=== PATIENT | male | born 1940 | race Caucasian/White ===

== ENCOUNTER 2018-10-13 18:08 | Inpatient (IN) | payer MEDICARE, MEDICAID ==
[~2018-10-13] VITALS: Ht 170.2 cm; Wt 82.6 kg
[2018-10-13] VITALS (8 sets, daily range): BP systolic 128–147; BP diastolic 44–71
[~2018-10-13 18:08] MED LIST: AMIO200T4 PO; EZET10TA14 PO; FEBU40TA PO; FINA5TAB11 PO; FOLI0.8T23 PO; FOLI1TAB16 PO; FURO40TA5 PO; LEVO137T24 PO; MONT4GRA PO; NEBI5TAB8 PO; RIVA10TA PO; ROSU40TA PO; SERT100T PO; SILO8CAP2 PO; SPIR25TA6 PO; TIOT18CA3 IH
[2018-10-13] MEDS ORDERED: Magnesium 1GM/D5W 100ML PREMIX 200 ML IV ONE (18:20)
--- NOTE | 2018-10-13 18:20 | NUR ---
RT PT BROUGHT INTO ER BY PARAMEDICS, PT RECEIVED WITH LABORED BREATHING BUT STILL AWAKE AND ALERT. PT PLACED ON BIPAP PER DR. LOREDO ON NOTED SETTINGS. BIPAP ALARMS ARE SET AND AUDIBLE WITH BVM BY BEDSIDE. BIPAP PLUGGED INTO RED OUTLET. Addendum: 10/13/18 at 1846 by BRENDA STOLL RT Amended: Links added.
--- NOTE | 2018-10-13 18:20 | NUR ---
[id number] FROM HOME FOR COUGH AND CONGESTION, SOB SINCE YESTERDAY. PT ON BREATHING TREATMENT GUEST RELATIONS AGENT. AOX4, VSS, RESPIRATIONS EVEN AND LABORED. SKIN WARM, SLIGHTLY DIAPHORETIC, AND INTACT. DENIES DIZZINESS, WEAKNESS, N/V. AT BEDSIDE. READY FOR EVAL.
--- NOTE | 2018-10-13 18:20 | NUR ---
Note undone in EDM - 10/13/18 at 2101 by GZAKARYAN BIBRA99 FROM HOME FOR COUGH AND CONGESTION, SOB SINCE YESTERDAY. PT ON BREATHING TREATMENT DIRECTOR BIOLOGICS. AOX4, VSS, RESPIRATIONS EVEN AND LABORED. SKIN WARM, SLIGHTLY DIAPHORETIC, AND INTACT. DENIES DIZZINESS, WEAKNESS, N/V. AT BEDSIDE. READY FOR EVAL.
[2018-10-13] MEDS ORDERED: methylPREDNISolone SOD SUCC 125 MG/2ML VIAL ONE (18:27)
[2018-10-13] MEDS ORDERED: Magnesium 1GM/D5W 100ML PREMIX 100 ML IV ONE (18:27)
[2018-10-13] MEDS ORDERED: methylPREDNISolone SOD SUCC 125 MG/2ML VIAL IV ONE (18:30)
[2018-10-13] MEDS ORDERED: IV NS 0.9% 500 ML IV ONE (18:30)
[2018-10-13 18:46] LABS: BASOPHILS % (AUTO) 0.2 % (0.0-2.0); HEMATOCRIT 40 % (39-51); HEMOGLOBIN 12.6 g/dL (13.5-17.5); LYMPHOCYTES # (AUTO) 1.2 /CMM (0.8-4.8); LYMPHOCYTES % (AUTO) 6.3 % (20.0-44.0); MEAN CORPUSCULAR HGB CONC 31 g/dl (31.0-36.0); MEAN CORPUSCULAR VOLUME 87 fL (80-96); MONOCYTES # (AUTO) 0.6 /CMM (0.1-1.30); MONOCYTES % (AUTO) 2.9 % (2.0-12.0); NEUTROPHILS # (AUTO) 17.6 /CMM (1.8-8.9); NEUTROPHILS % (AUTO) 90.6 % (43.0-81.0); PLATELET COUNT (AUTO) 236 /CMM (150-450); RED BLOOD CELL COUNT(AUTO) 4.59 MIL/uL (4.5-6.0); WHITE BLOOD COUNT (AUTO) 19.5 K/uL (4.3-11.0)
[2018-10-13] MEDS ORDERED: IPRA4AER IH (18:54)
[2018-10-13] MEDS ORDERED: DOCU100C36 PO (18:54)
[2018-10-13] MEDS ORDERED: AZITHROMYCIN 500 MG in IV D5W 250 ML IV ONE (19:30)
[2018-10-13] MEDS ORDERED: AZITHROMYCIN 500 MG VIAL ONE (19:30)
[2018-10-13] MEDS ORDERED: CEFTRIAXONE 1GM BAG (ER ONLY) 50 ML IV ONE (19:30)
[2018-10-13] MEDS ORDERED: CEFTRIAXONE 1 G in IV D5W 50 ML IV ONE (19:30)
[2018-10-13 19:40] LABS: CALCIUM, SERUM 9.2 mg/dL (8.5-10.1); CARBON DIOXIDE 28 mmol/L (21-32); CHLORIDE 104 mmol/L (98-107); CREATININE 1.5 mg/dL (0.6-1.3); GLUCOSE 121 mg/dL (74-106); POTASSIUM 4.2 mmol/L (3.5-5.1); SODIUM SERUM 141 mmol/L (136-145); UREA NITROGEN, BLOOD 41 mg/dL (7-18)
[2018-10-13 19:40] LABS: ABG BASE EXCESS 2.6 mmol/L; ABG OXYGEN SATURATION 93.8 % (92.0-98.5); ABG PCO2 36.1 mmHg (35.0-45.0); ABG PH 7.475 (7.350-7.450); ABG PO2 68.9 mmHg (75.0-100.0); AaDO2 102.6 mmHg; COHb 1.1 % (0.5-1.5); MetHb 0.4 % (0.0-1.5); O2Hb 92.4 % (94.0-97.0); SITE, ABG Right Radial; VENT MODE, BG BIPAP15/5 30% RR12
[2018-10-13] MEDS ORDERED: ALBUTEROL FS 2.5 MG/3 ML VIAL.NEB ONE (19:43)
[2018-10-13] MEDS ORDERED: IPRATROPIUM NEB FS 0.5 MG/2.5 ML AMPUL.NEB ONE (19:43)
[2018-10-13 19:53] LABS: ALANINE AMINOTRANSFERASE 26 U/L (12-78); ALKALINE PHOSPHATASE 115 U/L (46-116); ASPARTATE AMINOTRANSFERASE 18 U/L (15-37); B-TYPE NATRIURETIC PEPTIDE 6680 PG/ML (0-125); BILIRUBIN,DIRECT 0.2 mg/dL (0.0-0.2); BILIRUBIN,TOTAL 0.7 mg/dL (0.2-1.0); TOTAL PROTEIN, SERUM 6.9 g/dL (6.4-8.2)
--- NOTE | 2018-10-13 19:57 | NUR ---
RT NOTE PT RECEIVED ON BIPAP SETTINGS OF 15/5 30% RR 12. ABG RESULTS READ BY . MD WANTS TO KEEP BIPAP ON, BREATHING TX WAS ORDERED. WILL CONT TO MONITOR PT. Addendum: 10/13/18 at 1958 by BENITA HERNANDEZ RT Amended: Links added.
[2018-10-13] MEDS ORDERED: ALBUTEROL FS 2.5 MG/3 ML VIAL.NEB NEB ONE (20:00)
[2018-10-13] MEDS ORDERED: IPRATROPIUM NEB FS 0.5 MG/2.5 ML AMPUL.NEB NEB ONE (20:00)
--- NOTE | 2018-10-13 20:27 | NUR ---
ICU 254
[2018-10-13] MEDS ORDERED: AZITHROMYCIN 250 MG TABLET PO SCH (21:00)
[2018-10-13] MEDS ORDERED: ONDANSETRON HCL/PF 4 MG/2 ML VIAL IVP PRN (21:00)
[2018-10-13] MEDS ORDERED: ZOLPIDEM TARTRATE 5 MG TABLET PO PRN (21:00)
[2018-10-13] MEDS ORDERED: ACETAMINOPHEN 325 MG TABLET PO PRN (21:00)
[2018-10-13] MEDS ORDERED: MAG HYDROX/AL HYDROX/SIMETH 30 ML UDC PO PRN (21:00)
[2018-10-13] MEDS: CEFTRIAXONE 1 G in IV D5W 50 ML IV SCH (21:00)
[2018-10-13] MEDS ORDERED: MAGNESIUM HYDROXIDE 30 ML UDC PO PRN (21:00)
[2018-10-13] MEDS ORDERED: HYDROCODONE/APAP 5/325MG 1 EACH TABLET PO PRN (21:00)
[2018-10-13] MEDS ORDERED: Z GUARD REMEDY 2 OZ OINT TP PRN (21:00)
--- NOTE | 2018-10-13 21:13 | NUR ---
REPORT GIVEN TO MARY HUANG FOR 254
--- NOTE | 2018-10-13 21:20 | NUR ---
PT TRANSFERRED TO ICU VIA [facility] BY BRIAN LANIER AND KONRAD RN
[2018-10-13] MEDS ORDERED: IV NS 0.9% 250 ML IV PRN (21:30)
[2018-10-13] MEDS: ALBUTEROL FS 2.5 MG/3 ML VIAL.NEB NEB SCH (21:38)
--- NOTE | 2018-10-13 21:50 | NUR ---
CHEMICAL RESEARCH WORKER RCD PT FROM ER W/DX ACUTE RESP FAIL HYPOXIA; PT PLACED ON BIPAP BY RT RR12 15/5 PS 10. AT BEDSIDE UPDATED WITH PLAN OF CARE. AV PACING ON MONITOR.
[2018-10-13] MEDS ORDERED: FUROSEMIDE 20 MG/2 ML VIAL IV ONE (22:00)
--- NOTE | 2018-10-13 22:00 | NUR ---
FILM AND VIDEO GRAPHICS DESIGNER PER PT ALL HOME MEDS WERE TAKEN PRIOR TO ARRIVING AT HOSPITAL HOWEVER PT IS REQUESTING SEROQUEL HE TAKES IT EVERY NIGHT FOR SLEEP.
[2018-10-13] MEDS: QUETIAPINE FUMARATE 25 MG TABLET PO SCH (23:03)
[2018-10-14] VITALS (29 sets, daily range): BP systolic 126–169; BP diastolic 19–79
[2018-10-14 05:00] LABS: BASOPHILS % (AUTO) 0.1 % (0.0-2.0); HEMATOCRIT 38 % (39-51); HEMOGLOBIN 12.1 g/dL (13.5-17.5); LYMPHOCYTES # (AUTO) 0.5 /CMM (0.8-4.8); MEAN CORPUSCULAR HGB CONC 32 g/dl (31.0-36.0); MEAN CORPUSCULAR VOLUME 88 fL (80-96); MONOCYTES # (AUTO) 0.2 /CMM (0.1-1.30); MONOCYTES % (AUTO) 1.1 % (2.0-12.0); NEUTROPHILS % (AUTO) 95.8 % (43.0-81.0); PLATELET COUNT (AUTO) 220 /CMM (150-450); RED BLOOD CELL COUNT(AUTO) 4.36 MIL/uL (4.5-6.0); WHITE BLOOD COUNT (AUTO) 16.7 K/uL (4.3-11.0)
[2018-10-14 05:10] LABS: CHOLESTEROL 114 mg/dL (<200); HDL CHOLESTEROL 54 mg/dL (40-60); LDL 43 mg/dL (0-99); TRIGLYCERIDES 109 mg/dL (30-150)
[2018-10-14 05:27] LABS: CALCIUM, SERUM 8.9 mg/dL (8.5-10.1); CARBON DIOXIDE 26 mmol/L (21-32); CHLORIDE 103 mmol/L (98-107); CREATININE 1.6 mg/dL (0.6-1.3); MAGNESIUM 2.4 mg/dL (1.8-2.4); POTASSIUM 4.5 mmol/L (3.5-5.1); SODIUM SERUM 140 mmol/L (136-145); UREA NITROGEN, BLOOD 38 mg/dL (7-18)
[2018-10-14 06:01] LABS: GLUCOSE 389 mg/dL (74-106)
--- NOTE | 2018-10-14 07:05 | NUR ---
RN NOTES RECEIVED PT SITING ON BSC , A/OX4, ON BIPAP , TOLERATING CURRENT BIPAP SETTING WELL. O2 SAT 98%, ON TELE AV PACING HR IN 60'S , L HAND IV SITE G 20 CLEAN, DRY AND INTACT, CALL LIGHT WITHIN EASY REACH, CONTINUE TO MONITOR.
[2018-10-14] MEDS: FOLIC ACID 1 MG TABLET PO SCH (08:22)
[2018-10-14] MEDS: SPIRONOLACTONE 25 MG TABLET PO SCH ×2 (08:22→16:12)
[2018-10-14] MEDS: AMIODARONE HCL 200 MG TABLET PO SCH (08:23)
[2018-10-14] MEDS: FINASTERIDE (5 MG) 5 MG TABLET PO SCH (08:23)
[2018-10-14] MEDS: methylPREDNISolone SOD SUCC 125 MG/2ML VIAL IV SCH ×3 (08:23→16:12)
[2018-10-14] MEDS: SERTRALINE HCL 50 MG TABLET PO SCH (08:27)
[2018-10-14] MEDS: IPRATROPIUM NEB FS 0.5 MG/2.5 ML AMPUL.NEB HHN SCH ×5 (08:35→21:50)
[2018-10-14] MEDS: ALBUTEROL FS 2.5 MG/3 ML VIAL.NEB NEB SCH ×4 (08:36→19:49)
[2018-10-14] MEDS: LEVOTHYROXINE SODIUM 137 MCG TABLET PO SCH (08:43)
[2018-10-14] MEDS: INSULIN ASPART/LISPRO 100 UNIT/ML CARTRIDGE SQ SCH ×3 (08:53→17:04)
[2018-10-14] MEDS ORDERED: Medication Not On Formulary EA (Sertraline Hcl (Zoloft) 1 TAB) PO SCH (09:00)
[2018-10-14] MEDS ORDERED: INSULIN ASPART/LISPRO 100 UNIT/ML CARTRIDGE SQ PRN (09:00)
[2018-10-14] MEDS ORDERED: DEXTROSE 50%-WATER 50 ML DISP.SYRIN IV PRN ×3 (09:00→12:00)
[2018-10-14] MEDS ORDERED: TIOTROPIUM BROMIDE 6 CAP/BOX CAP.W.DEV IH SCH (09:00)
--- NOTE | 2018-10-14 10:00 | NUR ---
RN NOTES PT OOB TO BSC, TOLERATING WELL, SUPPORTIVE AT THE BEDSIDE, CONTINUE TO MONITOR. OFF BIPAP, [place] O2 N/C AT 4 L WELL , CONTINUE TO MONITOR .
[2018-10-14] MEDS: GUAIFENESIN LA 600 MG TABLET.SA PO SCH ×2 (10:55→20:49)
[2018-10-14] MEDS ORDERED: INSULIN REGULAR, HUMAN 100 UNIT/ML 3 ML VIAL SQ PRN (12:00)
[2018-10-14] MEDS ORDERED: BLOOD SUGAR DIAGNOSTIC 1 EACH STRIP IN SCH ×3 (12:00)
[2018-10-14] MEDS: FUROSEMIDE 100 MG/10 ML VIAL IV SCH ×3 (12:05→20:49)
[2018-10-14 12:09] LABS: THYROID STIMULATING HORMONE 0.824 uIU/mL (0.358-3.74)
[2018-10-14] MEDS: BLOOD SUGAR DIAGNOSTIC 1 EACH STRIP IN SCH ×3 (13:14→21:34)
[2018-10-14] MEDS: INSULIN ASPART/LISPRO 100 UNIT/ML CARTRIDGE SQ PRN ×3 (14:01→21:32)
--- NOTE | 2018-10-14 15:00 | NUR ---
RN NOTES PT OUT OF BED TO CHAIR, TOLERATING WELL , CONTINUE TO MONITOR .
[2018-10-14] MEDS: DOCUSATE SODIUM 100 MG CAPSULE PO SCH (17:05)
[2018-10-14] MEDS: EZETIMIBE 10 MG TABLET PO SCH (17:06)
--- NOTE | 2018-10-14 18:00 | NUR ---
RT NOTE: RT CALLED A THIS TIME FOR RESPIRATORY TREATMENT. PATIENT'S REQUESTED ME TO WAIT TO ADMINISTER AFTER PATIENT FINISHED EATING. TREATMENT DONE WITH NO ADVERSE REACTION. RESPIRATIONS ARE EVEN AND UNLABORED. WILL INDORSE TO INCOMING SHIFT.
--- NOTE | 2018-10-14 18:21 | NUR ---
RN NOTES NO SOB NOTED, UNABLE TO OBTAIN SEPTUM SAMPLE YET, PT RECEIVING BREATHING TREATMENT AT THIS TIME, SR UP x3, BED LOCKED AND IN LOWEST POSITION , WILL ENDORSE TO PHOTOGRAPHIC DEVELOPER AND PRINTER NURSE FOR CONTINUITY OF CARE .
--- NOTE | 2018-10-14 19:30 | NUR ---
rn notes patient is alert and oriented x 4. able to converse in yi. connected to monitor. safety measures provided.
[2018-10-14] MEDS: CEFTRIAXONE 1 G in IV D5W 50 ML IV SCH (20:56)
[2018-10-14] MEDS ORDERED: AZITHROMYCIN 250 MG TABLET PO SCH (21:00)
[2018-10-14] MEDS: QUETIAPINE FUMARATE 25 MG TABLET PO SCH (21:10)
[2018-10-14] MEDS: RIVAROXABAN 10 MG TABLET PO SCH (21:10)
[2018-10-14] MEDS: INSULIN GLARGINE, 100 UNIT/ML CARTRIDGE SQ SCH (21:31)
[2018-10-14] MEDS ORDERED: INSULIN GLARGINE, 100 UNIT/ML CARTRIDGE SQ SCH (22:00)
[2018-10-14] MEDS ORDERED: QUETIAPINE FUMARATE 25 MG TABLET PO SCH (22:00)
[2018-10-15] VITALS (16 sets, daily range): BP systolic 126–162; BP diastolic 47–116
[2018-10-15 04:52] LABS: BASOPHILS % (AUTO) 0.1 % (0.0-2.0); HEMATOCRIT 38 % (39-51); HEMOGLOBIN 12.2 g/dL (13.5-17.5); LYMPHOCYTES # (AUTO) 0.6 /CMM (0.8-4.8); LYMPHOCYTES % (AUTO) 5.4 % (20.0-44.0); MEAN CORPUSCULAR HGB CONC 32 g/dl (31.0-36.0); MEAN CORPUSCULAR VOLUME 87 fL (80-96); MONOCYTES # (AUTO) 0.4 /CMM (0.1-1.30); NEUTROPHILS # (AUTO) 9.3 /CMM (1.8-8.9); NEUTROPHILS % (AUTO) 90.5 % (43.0-81.0); PLATELET COUNT (AUTO) 204 /CMM (150-450); RED BLOOD CELL COUNT(AUTO) 4.36 MIL/uL (4.5-6.0); WHITE BLOOD COUNT (AUTO) 10.2 K/uL (4.3-11.0)
[2018-10-15 05:03] LABS: ALANINE AMINOTRANSFERASE 24 U/L (12-78); ALBUMIN 2.6 g/dL (3.4-5.0); ALKALINE PHOSPHATASE 95 U/L (46-116); ASPARTATE AMINOTRANSFERASE 16 U/L (15-37); BILIRUBIN,TOTAL 0.8 mg/dL (0.2-1.0); CALCIUM, SERUM 8.8 mg/dL (8.5-10.1); CARBON DIOXIDE 31 mmol/L (21-32); CHLORIDE 103 mmol/L (98-107); CREATININE 1.3 mg/dL (0.6-1.3); GLUCOSE 326 mg/dL (74-106); MAGNESIUM 2.2 mg/dL (1.8-2.4); PHOSPHORUS 3.6 mg/dL (2.5-4.9); POTASSIUM 3.5 mmol/L (3.5-5.1); SODIUM SERUM 142 mmol/L (136-145); TOTAL PROTEIN, SERUM 6.4 g/dL (6.4-8.2); UREA NITROGEN, BLOOD 45 mg/dL (7-18)
[2018-10-15] MEDS: POTASSIUM CHLORIDE 20 MEQ TAB.PRT.SR PO SCH ×2 (06:39→08:35)
--- NOTE | 2018-10-15 07:00 | NUR ---
RN NOTES RECEIVED PT ON BED, A/OX4, ON 2L O2 N/C , NO DISTRESS NOTED, O2 SAT 98%, ON TELE AV PACING HR IN 60'S , L HAND IV SITE G 20 CLEAN, DRY AND INTACT, CALL LIGHT WITHIN EASY REACH, BED LOCKED AND IN LOWEST POSITION, CONTINUE TO MONITOR.
[2018-10-15] MEDS: LEVOTHYROXINE SODIUM 137 MCG TABLET PO SCH (07:23)
[2018-10-15] MEDS: INSULIN ASPART/LISPRO 100 UNIT/ML CARTRIDGE SQ PRN ×2 (07:24→12:28)
[2018-10-15] MEDS: INSULIN ASPART/LISPRO 100 UNIT/ML CARTRIDGE SQ SCH ×3 (07:24→17:38)
[2018-10-15] MEDS: BLOOD SUGAR DIAGNOSTIC 1 EACH STRIP IN SCH ×4 (07:25→21:23)
[2018-10-15] MEDS: ALBUTEROL FS 2.5 MG/3 ML VIAL.NEB NEB SCH ×4 (07:52→19:50)
--- NOTE | 2018-10-15 07:55 | NUR ---
RN NOTES REPORT GIVEN TO ANN MARIE HERNANDEZ FOR CONTINUITY OF CARE .
[2018-10-15] MEDS ORDERED: BUMETANIDE INJ 16 MG in IV NS 0.9% 16 ML IV ONE (08:00)
[2018-10-15] MEDS: GUAIFENESIN LA 600 MG TABLET.SA PO SCH ×2 (08:36→21:28)
[2018-10-15] MEDS: methylPREDNISolone SOD SUCC 125 MG/2ML VIAL IV SCH ×2 (08:36→13:04)
[2018-10-15] MEDS: SPIRONOLACTONE 25 MG TABLET PO SCH ×2 (08:36→17:35)
[2018-10-15] MEDS: FOLIC ACID 1 MG TABLET PO SCH (08:37)
[2018-10-15] MEDS: MONTELUKAST SODIUM (10MG) 10 MG TABLET PO SCH (08:37)
[2018-10-15] MEDS: AMIODARONE HCL 200 MG TABLET PO SCH (08:37)
[2018-10-15] MEDS: SERTRALINE HCL 50 MG TABLET PO SCH (08:37)
[2018-10-15] MEDS: FINASTERIDE (5 MG) 5 MG TABLET PO SCH (08:37)
[2018-10-15] MEDS: DAKINS QUARTER STRENGTH (0.125%) 480 ML BOTTLE TOP SCH (09:00)
[2018-10-15] MEDS: IPRATROPIUM NEB FS 0.5 MG/2.5 ML AMPUL.NEB HHN SCH ×4 (09:46→19:51)
--- NOTE | 2018-10-15 11:00 | NUR ---
LUDLOW MACHINE OPERATOR TO TELE PATIENT DOWNGRADED TO ANGEL/TELE WILL PRISCILLA IN ANGEL 1ST FLOOR
[2018-10-15] MEDS: THERAHONEY GEL 1.5 OZ TUBE TP SCH (13:05)
[2018-10-15] MEDS ORDERED: DEXTROSE 50%-WATER 50 ML DISP.SYRIN IV PRN (14:30)
[2018-10-15] MEDS: methylPREDNISolone SOD SUCC 40 MG/ML VIAL IV SCH (17:34)
[2018-10-15] MEDS: *INSULIN REGULAR(HUMULIN R)HUM 100 UNIT/ML VIAL SQ PRN ×2 (17:41→21:19)
[2018-10-15] MEDS: BLOOD SUGAR DIAGNOSTIC 1 EACH STRIP VI SCH ×2 (17:48→22:00)
[2018-10-15] MEDS: EZETIMIBE 10 MG TABLET PO SCH (18:02)
[2018-10-15] MEDS: DOCUSATE SODIUM 100 MG CAPSULE PO SCH (18:02)
[2018-10-15] MEDS: ATORVASTATIN 40 MG TABLET PO SCH (18:02)
--- NOTE | 2018-10-15 18:52 | NUR ---
FORENSIC BALLISTICS EXPERT CLOSING NOTES PATIENT ASLEEP IN BED. ABLE TO AROUSE WITH NAME AND SOFT TOUCH. ON 2 LTRS VIA NASAL CANNULA NO SIGNS OR SYMPTOMS OF RESPIRATORY DISTRESS OR ACUTE PAIN. WOUND DRESSING TO LLE DONE WITH NO COMPLICATIONS. APPETITE GOOD. BS RANGE 284-339 WITH MOD SLIDING SCALE. AMBULATES TO CHAIR WITH MAX ASSIST. USING URINAL CLEAR YELLOW ABLE TO MAKE NEEDS KNOWN AND ALL MET. SAFETY PRECAUTIONS IN PLACE CALL LIGHT WITHIN REACH. PRISCILLA
--- NOTE | 2018-10-15 19:30 | NUR ---
TELE/RN RECEIVE PATIENT AWAKE, ALERT, ORIENTED, COMFORTABLE, NO C/O PAIN, NO DISTRESS NOTED, CALL LIGHT IN REACH. FALL PRECAUTION, WILL MONITOR.
[2018-10-15] MEDS ORDERED: VANCOMYCIN 1.5 GM in IV D5W 500 ML IV ONE (20:00)
[2018-10-15] MEDS: RIVAROXABAN 10 MG TABLET PO SCH (21:18)
[2018-10-15] MEDS: INSULIN GLARGINE, 100 UNIT/ML CARTRIDGE SQ SCH (21:20)
[2018-10-15] MEDS: QUETIAPINE FUMARATE 25 MG TABLET PO SCH (21:29)
--- NOTE | 2018-10-15 22:04 | NUR ---
TELE/RN ACCU CHECK NOT DONE, DUPLICATE ORDER.
--- NOTE | 2018-10-15 23:57 | NUR ---
ANGEL/RN PATIENT AWAKE, NO CHANGE IN CONDITION. ENDORSE TO NEXT RN FOR CONTINUITY OF CARE.
[2018-10-16] VITALS: BP 110/53
--- NOTE | 2018-10-16 | NUR ---
ANGEL RN NOTES RECEIVED PTS AND REPORT FROM WOJCIECH , CONTINUE CARE, V/S STABLE AFEBRILE ALL NEEDS ATTENDED TOO CALL LIGHT WITHIN REACH KEPT PTS CLEAN DRY AND COMFORTABLE, NO SOB NO DISTRESS NOTED.
[2018-10-16 04:00] VITALS: BP 162/68
--- NOTE | 2018-10-16 06:00 | NUR ---
ANGEL RN NOTES
--- NOTE | 2018-10-16 06:36 | NUR ---
ANGEL RN NOTES PTS IN BED AWAKE , V/S STABLE AFEBRILE NO SOB NO DISTRESS NOTED , WILL ENDORSE TO RN DAY SHIFT FOR CONTINUITY OF CARE.
[2018-10-16 06:41] LABS: BASOPHILS % (AUTO) 0.1 % (0.0-2.0); HEMATOCRIT 39 % (39-51); HEMOGLOBIN 12.4 g/dL (13.5-17.5); LYMPHOCYTES # (AUTO) 0.5 /CMM (0.8-4.8); LYMPHOCYTES % (AUTO) 4.9 % (20.0-44.0); MEAN CORPUSCULAR HGB CONC 32 g/dl (31.0-36.0); MEAN CORPUSCULAR VOLUME 87 fL (80-96); MONOCYTES # (AUTO) 0.7 /CMM (0.1-1.30); MONOCYTES % (AUTO) 6.2 % (2.0-12.0); NEUTROPHILS # (AUTO) 9.9 /CMM (1.8-8.9); NEUTROPHILS % (AUTO) 88.8 % (43.0-81.0); PLATELET COUNT (AUTO) 210 /CMM (150-450); RED BLOOD CELL COUNT(AUTO) 4.45 MIL/uL (4.5-6.0); WHITE BLOOD COUNT (AUTO) 11.2 K/uL (4.3-11.0)
[2018-10-16 07:11] LABS: ALANINE AMINOTRANSFERASE 38 U/L (12-78); ALBUMIN 2.7 g/dL (3.4-5.0); ALKALINE PHOSPHATASE 93 U/L (46-116); ASPARTATE AMINOTRANSFERASE 23 U/L (15-37); BILIRUBIN,TOTAL 1.1 mg/dL (0.2-1.0); CALCIUM, SERUM 8.9 mg/dL (8.5-10.1); CARBON DIOXIDE 36 mmol/L (21-32); CHLORIDE 98 mmol/L (98-107); CREATININE 1.4 mg/dL (0.6-1.3); PHOSPHORUS 3.3 mg/dL (2.5-4.9); POTASSIUM 3.4 mmol/L (3.5-5.1); SODIUM SERUM 140 mmol/L (136-145); TOTAL PROTEIN, SERUM 6.5 g/dL (6.4-8.2); UREA NITROGEN, BLOOD 43 mg/dL (7-18)
[2018-10-16] MEDS: ALBUTEROL FS 2.5 MG/3 ML VIAL.NEB NEB SCH ×4 (07:16→19:12)
[2018-10-16] MEDS: IPRATROPIUM NEB FS 0.5 MG/2.5 ML AMPUL.NEB HHN SCH ×3 (07:17→19:12)
[2018-10-16 07:18] LABS: GLUCOSE 376 mg/dL (74-106)
[2018-10-16] MEDS ORDERED: FEE PK DOSING 1 MIN EA MC ONE (07:30)
--- NOTE | 2018-10-16 07:30 | NUR ---
ANGEL RN AM NOTES RECEIVED PT IN BED, A/OX4, ON 1L O2 N/C , NO DISTRESS NOTED, ON TELE AV PACING HR IN 58, DENIES PAIN, L HAND IV SITE G 20 CLEAN, DRY AND INTACT, CALL LIGHT WITHIN EASY REACH, BED LOCKED AND IN LOWEST POSITION, WILL CONTINUE TO MONITOR.
[2018-10-16] MEDS: BLOOD SUGAR DIAGNOSTIC 1 EACH STRIP IN SCH (07:51)
[2018-10-16] MEDS: BLOOD SUGAR DIAGNOSTIC 1 EACH STRIP VI SCH ×4 (07:51→20:59)
--- NOTE | 2018-10-16 07:54 | NUR ---
ANGEL RN NOTES ACCUCHECK DONE. BS 316 MG/DL, 12 U HUM R GIVEN PER SS.
[2018-10-16 08:00] VITALS: BP 169/67
[2018-10-16] MEDS: LEVOTHYROXINE SODIUM 137 MCG TABLET PO SCH (08:23)
[2018-10-16] MEDS: INSULIN ASPART/LISPRO 100 UNIT/ML CARTRIDGE SQ SCH ×3 (08:25→17:10)
[2018-10-16] MEDS: INSULIN REGULAR, HUMAN 100 UNIT/ML 3 ML VIAL SQ PRN ×3 (08:26→17:22)
--- NOTE | 2018-10-16 09:30 | NUR ---
MS RN NOTES DUE MEDS GIVEN
[2018-10-16] MEDS: MONTELUKAST SODIUM (10MG) 10 MG TABLET PO SCH (09:32)
[2018-10-16] MEDS: methylPREDNISolone SOD SUCC 40 MG/ML VIAL IV SCH ×3 (09:32→17:08)
[2018-10-16] MEDS: GUAIFENESIN LA 600 MG TABLET.SA PO SCH ×2 (09:32→20:59)
[2018-10-16] MEDS: FOLIC ACID 1 MG TABLET PO SCH (09:33)
[2018-10-16] MEDS: SPIRONOLACTONE 25 MG TABLET PO SCH ×2 (09:33→17:08)
[2018-10-16] MEDS: AMIODARONE HCL 200 MG TABLET PO SCH (09:33)
[2018-10-16] MEDS: SERTRALINE HCL 50 MG TABLET PO SCH (09:33)
[2018-10-16] MEDS: FINASTERIDE (5 MG) 5 MG TABLET PO SCH (09:34)
[2018-10-16] MEDS: DAKINS QUARTER STRENGTH (0.125%) 480 ML BOTTLE TOP SCH (09:41)
[2018-10-16] MEDS: THERAHONEY GEL 1.5 OZ TUBE TP SCH (09:41)
--- NOTE | 2018-10-16 09:44 | NUR ---
RN NOTES TRANSFER TO MED SURG. DC ANGEL PER DR. SMITH
[2018-10-16] MEDS ORDERED: POTASSIUM CHLORIDE 20 MEQ TAB.PRT.SR PO SCH (10:00)
[2018-10-16] MEDS: FUROSEMIDE 40 MG TABLET PO SCH (10:05)
[2018-10-16] MEDS ORDERED: RXVAN XX (10:45)
[2018-10-16] MEDS ORDERED: PRED50TA PO (10:45)
--- NOTE | 2018-10-16 11:15 | NUR ---
MS RN NOTES DR. MULLIGAN SPOKE WITH PT'S , PT MAY STAY FOR 2 DAYS MORE. WILL CONTINUE IV ATB AT HOME, VANCO IV WITH [facility]. CASE MANAGEMENT AWARE.
[2018-10-16 12:00] VITALS: BP 141/63
--- NOTE | 2018-10-16 12:32 | NUR ---
MS RN NOTES ACCUCHECK DONE. BS 289 MG/DL, 9 U HUM R GIVEN PER SS.
--- NOTE | 2018-10-16 14:00 | NUR ---
MS RN NOTES PICC LINE IN PLACE TO RIGHT UPPER ARM.
[2018-10-16] MEDS: VANCOMYCIN 1.25 GM in IV D5W 500 ML IV SCH (15:20)
[2018-10-16 16:00] VITALS: BP 121/61
[2018-10-16] MEDS: DOCUSATE SODIUM 100 MG CAPSULE PO SCH (17:07)
[2018-10-16] MEDS: ATORVASTATIN 40 MG TABLET PO SCH (17:08)
[2018-10-16] MEDS: EZETIMIBE 10 MG TABLET PO SCH (17:08)
--- NOTE | 2018-10-16 17:34 | NUR ---
MS RN NOTES ACCUCHECK DONE. BS 210 MG/DL. 6 UNITS HUM R GIVEN PER SS.
--- NOTE | 2018-10-16 18:41 | NUR ---
RN NOTES PT RESTING IN BED. NOT IN ANY DISTRESS, ON ROOM AIR. DENIES PAIN. PRESCRIBED WOUND TREATMENT AND PM CARE DONE EARLIER. KIRSTIE PICC LINE AND LEFT HAND IV ACCESS IN SITU. BOTH SITE CLEAR. ALL NEEDS MET AT THIS TIME. NO OTHER SIGNIFICANT CHANGE IN CONDITION. SAFETY MEASURES IN PLACE. CALL LIGHT WITHIN REACH. WILL ENDORSE TO NEXT SHIFT FOR PRISCILLA
[2018-10-16 20:00] VITALS: BP 115/41
--- NOTE | 2018-10-16 20:00 | NUR ---
MS/NOTES: RECEIVED PT. SITTING IN BED W/ NO S/S OF RESPIRATORY DISTRESS. DENIES ANY C/O PAIN OR SOB AT PRESENT. W/ KIRSTIE PICC LINE W/ DRESSING CLEAN AND DRY. CONTINENT OF B/B. GOES TO BATHROOM. LH G 20 PATENT AND INTACT W/ NO S/S OF INFECTION/INFILTRATION NOTED. WILL CONTINUE TO MONITOR. CALL LIGHT W/REACH.
[2018-10-16] MEDS: MUPIROCIN OINT 2% 22 GM TUBE SCH (20:59)
[2018-10-16] MEDS: RIVAROXABAN 10 MG TABLET PO SCH (21:00)
[2018-10-16] MEDS: INSULIN GLARGINE, 100 UNIT/ML CARTRIDGE SQ SCH (21:01)
[2018-10-16] MEDS: QUETIAPINE FUMARATE 25 MG TABLET PO SCH (21:12)
[2018-10-17] VITALS: BP 115/41
[2018-10-17] MEDS: IPRATROPIUM NEB FS 0.5 MG/2.5 ML AMPUL.NEB HHN SCH ×3 (01:30→11:42)
[2018-10-17 04:00] VITALS: BP 145/61
--- NOTE | 2018-10-17 07:23 | NUR ---
TELE/RN OPENING NOTES: PATIENT RECEIVED IN BED AWAKE IN NO ACUTE SIGNS OF DISTRESS. HOB ELEVATED. A/O X1-2. SPEAKS [place] ONLY, NO C/O PAIN OR DISCOMFORTS VOICED AT THIS TIME. ON TELE-MONITORING WITH V PACING AND HR ON THE 60'S. HL ON RIGHT AC G #20 PATENT AND INTACT, NO S/S OF PHLEBITIS OR INFILTRATION NOTED @ SITE. SAFETY ,MEASURES IN PLACE. BED IN LOW/LOCKED POSITION WITH SIDERAILS UP X2. CALL LIGHT WITHIN REACH. WILL CONTINUE TO MONITOR. Addendum: 10/17/18 at 0725 by JOSE LUIS SWANN RN CORRECTION: WRONG PROGRESS NOTES. IT'S FOR ANOTHER PATIENT.
--- NOTE | 2018-10-17 07:25 | NUR ---
RN OPENING NOTES: PATIENT RECEIVED IN BED AWAKE IN NO ACUTE SIGNS OF DISTRESS. HOB ELEVATED. A/O X4. ABLE TO VERBALIZED NEEDS WITH NO C/O PAIN OR DISCOMFORTS VOICED AT THIS TIME. ON 02 VIA N/C @ 1LPM, TOLERATING WELL WITH NO SOB NOTED. HL ON LEFT HAND G #20 PATENT AND INTACT, NO S/S OF PHLEBITIS OR INFILTRATIONS NOTED @ SITE. PT ALSO WITH KIRSTIE PICC LINE IN PLACE AND PATENT. SAFETY ,MEASURES IN PLACE. BED IN LOW/LOCKED POSITION WITH SIDE-RAILS UP X2. CALL LIGHT WITHIN REACH. WILL CONTINUE TO MONITOR.
--- NOTE | 2018-10-17 07:27 | NUR ---
MS/NOTES: REPORT GIVEN TO NEXT SHIFT NURSE FOR PRISCILLA.
[2018-10-17 07:28] LABS: CALCIUM, SERUM 8.6 mg/dL (8.5-10.1); CARBON DIOXIDE 34 mmol/L (21-32); CHLORIDE 101 mmol/L (98-107); CREATININE 1.4 mg/dL (0.6-1.3); GLUCOSE 301 mg/dL (74-106); POTASSIUM 4.3 mmol/L (3.5-5.1); SODIUM SERUM 140 mmol/L (136-145); UREA NITROGEN, BLOOD 52 mg/dL (7-18)
[2018-10-17] MEDS: LEVOTHYROXINE SODIUM 137 MCG TABLET PO SCH (07:44)
[2018-10-17] MEDS: INSULIN ASPART/LISPRO 100 UNIT/ML CARTRIDGE SQ SCH ×2 (07:50→12:15)
[2018-10-17] MEDS: INSULIN REGULAR, HUMAN 100 UNIT/ML 3 ML VIAL SQ PRN ×2 (07:50→12:14)
[2018-10-17] MEDS: BLOOD SUGAR DIAGNOSTIC 1 EACH STRIP VI SCH ×2 (07:51→12:12)
[2018-10-17 08:00] VITALS: BP 153/67
[2018-10-17] MEDS: ALBUTEROL FS 2.5 MG/3 ML VIAL.NEB NEB SCH ×2 (08:10→11:42)
[2018-10-17] MEDS: FUROSEMIDE 40 MG TABLET PO SCH (08:48)
[2018-10-17] MEDS: SERTRALINE HCL 50 MG TABLET PO SCH (08:48)
[2018-10-17] MEDS: MONTELUKAST SODIUM (10MG) 10 MG TABLET PO SCH (08:49)
[2018-10-17] MEDS: FOLIC ACID 1 MG TABLET PO SCH (08:49)
[2018-10-17] MEDS: GUAIFENESIN LA 600 MG TABLET.SA PO SCH (08:49)
[2018-10-17] MEDS: methylPREDNISolone SOD SUCC 40 MG/ML VIAL IV SCH ×2 (08:49→12:16)
[2018-10-17] MEDS: AMIODARONE HCL 200 MG TABLET PO SCH (08:50)
[2018-10-17] MEDS: FINASTERIDE (5 MG) 5 MG TABLET PO SCH (08:50)
[2018-10-17] MEDS: SPIRONOLACTONE 25 MG TABLET PO SCH (08:51)
[2018-10-17] MEDS: MUPIROCIN OINT 2% 22 GM TUBE SCH (08:51)
[2018-10-17] MEDS: DAKINS QUARTER STRENGTH (0.125%) 480 ML BOTTLE TOP SCH (08:52)
[2018-10-17] MEDS: THERAHONEY GEL 1.5 OZ TUBE TP SCH (08:52)
[2018-10-17] MEDS ORDERED: SULF1TAB48 PO (09:11)
[2018-10-17] MEDS: VANCOMYCIN 1.25 GM in IV D5W 500 ML IV SCH (09:20)
[2018-10-17 10:11] VITALS: BP 146/61
--- NOTE | 2018-10-17 13:07 | NUR ---
RN NOTES DOUBLE LUMEN PICC LINE ON KIRSTIE REMOVED PER DR MULLIGAN. PICC LINE MEASURED 35CM LONG WITTH NO BREAKAGE NOTED ON THE LINE/TUBE, MINIMAL BLEEDING NOTED AT INSERTION SITE. PRESSURE GAUZED APPLIED AND ELEVATED RIGHT ARM WITH PILLOWS. WILL CONTINUE TO MONITOR.
--- NOTE | 2018-10-17 13:47 | NUR ---
DIESEL ENGINE ENGINEER NOTES PATIENT DISCHARGE HOME WITH HOME WITH HEALTH CARE IN STABLE CONDITION. A/O X4, NO ACUTE SIGNS OF DISTRESS NOTED. V/S TAKEN AND RECORDED. HL ON LEFT HAND REMOVED, PRESSURE GAUZE APPLIED TO PREVENT BLEEDING. KIRSTIE PICC LINE SITE WITH NO FURTHER BLEEDING NOTED. PHOTO OF WOUND ON LOWER LEFT LEG TAKEN AND FILED ON CHART. ALL BELONGINGS ACCOUNTED FOR. HEALTH TEACHINGS GIVEN TO PT AND , BOTH VERBALIZED UNDERSTANDING. NEW PRESCRIPTION HANDED TO . PT LEFT UNIT @ 1330 VIA WHEELCHAIR TO OUTSIDE OF THE HOSPITAL LOBBY ACCOMPANIED BY THIS GRANTS ANALYST AND PT'S . MD AND CHARGE NURSE AWARE OF PT'S DISCHARGE.
== END 2018-10-17 13:30 | disposition home health service (06) | DRG 166 ==
LOC: ER 18:10 → ICU 20:36 → TELE-TD 10-15 11:07 → TELE1 10-15 13:46 → TELE-TD 10-16 00:14 → MEDSG1 10-16 10:08
PROVIDERS: ADMIT Internal Medicine; ATTEND Internal Medicine
PROC: 5A09457 Assistance with Respiratory Ventilation, 24-96 Consecutive Hours, Continuous Positive Airway Pressure (ICD-10-PCS; principal; 2018-10-13)
PROC: 0JBP0ZZ Excision of Left Lower Leg Subcutaneous Tissue and Fascia, Open Approach (ICD-10-PCS; 2018-10-14)
PROC: 05HY33Z Insertion of Infusion Device into Upper Vein, Percutaneous Approach (ICD-10-PCS; 2018-10-16)
PROC: B547ZZA Ultrasonography of Left Subclavian Vein, Guidance (ICD-10-PCS; 2018-10-16)
DX: J15.212 Pneumonia due to Methicillin resistant Staphylococcus aureus (principal); J96.01 Acute respiratory failure with hypoxia; J44.1 Chronic obstructive pulmonary disease with (acute) exacerbation; I50.22 Chronic systolic (congestive) heart failure; N17.9 Acute kidney failure, unspecified; D68.59 Other primary thrombophilia; I13.0 Hypertensive heart and chronic kidney disease with heart failure and stage 1 through stage 4 chronic kidney disease, or unspecified chronic kidney disease; E44.0 Moderate protein-calorie malnutrition; J44.0 Chronic obstructive pulmonary disease with (acute) lower respiratory infection; L97.909 Non-pressure chronic ulcer of unspecified part of unspecified lower leg with unspecified severity; I25.10 Atherosclerotic heart disease of native coronary artery without angina pectoris; I25.5 Ischemic cardiomyopathy; E11.622 Type 2 diabetes mellitus with other skin ulcer; E11.51 Type 2 diabetes mellitus with diabetic peripheral angiopathy without gangrene; I87.2 Venous insufficiency (chronic) (peripheral); E11.42 Type 2 diabetes mellitus with diabetic polyneuropathy; Z95.1 Presence of aortocoronary bypass graft; Z98.61 Coronary angioplasty status; Z95.810 Presence of automatic (implantable) cardiac defibrillator; I48.2 Chronic atrial fibrillation; Z79.01 Long term (current) use of anticoagulants; Z22.322 Carrier or suspected carrier of Methicillin resistant Staphylococcus aureus; I27.20 Pulmonary hypertension, unspecified; E11.22 Type 2 diabetes mellitus with diabetic chronic kidney disease; N18.9 Chronic kidney disease, unspecified; T38.0X5A Adverse effect of glucocorticoids and synthetic analogues, initial encounter; Y92.89 Other specified places as the place of occurrence of the external cause; E66.9 Obesity, unspecified; Z68.30 Body mass index [BMI] 30.0-30.9, adult; E78.5 Hyperlipidemia, unspecified; L84 Corns and callosities; Z87.891 Personal history of nicotine dependence
CPT/HCPCS: 36415; 36569; 36600; 71045-TC; 80048-TC; 80053-TC; 80061-TC; 80076-TC; 82962-TC; 83605-TC; 83735-TC; 83880; 84100-TC; 84439-TC; 84443-TC; 84484-TC; 85025-TC; 87040-TC; 87070-TC; 87081-TC; 94799-TC; A4216; A4606; A6402; A6403; C1751; G0378; J0456; J0696; J1815; J1940; J2920; J2930; J3370; J3475; J3490; J7030; J7040; J7050; J7060; Z7610

== ENCOUNTER 2019-08-21 08:58 | Inpatient (IN) | payer MEDICARE, MEDICAID ==
[~2019-08-21] VITALS: Ht 170.2 cm; Wt 79.8 kg
[2019-08-21] VITALS (17 sets, daily range): BP systolic 89–123; BP diastolic 37–94
[~2019-08-21 08:58] MED LIST changes: +DOCU100C36 PO; -EZET10TA14 PO; +EZET10TA16 PO; +IPRA4AER IH; +PRED50TA PO; +SULF1TAB48 PO
--- NOTE | 2019-08-21 09:27 | NUR ---
Pt placed on BIPAP, tolerating well
[2019-08-21 09:29] LABS: BASOPHILS # (AUTO) 0.1 /CMM (0.0-0.2); BASOPHILS % (AUTO) 0.4 % (0.0-2.0); EOSINOPHILS % (AUTO) 0.2 % (0.0-6.0); HEMATOCRIT 47 % (39-51); HEMOGLOBIN 14.6 g/dL (13.5-17.5); LYMPHOCYTES # (AUTO) 1.6 /CMM (0.8-4.8); LYMPHOCYTES % (AUTO) 6.8 % (20.0-44.0); MEAN CORPUSCULAR HGB CONC 31 g/dl (31.0-36.0); MEAN CORPUSCULAR VOLUME 86 fL (80-96); MONOCYTES # (AUTO) 0.8 /CMM (0.1-1.30); MONOCYTES % (AUTO) 3.3 % (2.0-12.0); NEUTROPHILS # (AUTO) 21.5 /CMM (1.8-8.9); NEUTROPHILS % (AUTO) 89.3 % (43.0-81.0); PLATELET COUNT (AUTO) 335 /CMM (150-450); WHITE BLOOD COUNT (AUTO) 24.1 K/uL (4.3-11.0)
[2019-08-21] MEDS ORDERED: FLUT1BLS6 IH (09:34)
[2019-08-21] MEDS ORDERED: FERR325T23 PO (09:34)
[2019-08-21] MEDS ORDERED: MONT10TA22 PO (09:34)
[2019-08-21] MEDS ORDERED: INSU100V7 SQ (09:34)
[2019-08-21] MEDS ORDERED: EVOL420W SQ (09:34)
[2019-08-21] MEDS ORDERED: LEVO25TA9 PO (09:34)
[2019-08-21] MEDS ORDERED: POTA10TA15 PO (09:34)
[2019-08-21] MEDS ORDERED: UBID100C13 PO (09:34)
[2019-08-21] MEDS ORDERED: QUET25TA PO (09:34)
[2019-08-21] MEDS ORDERED: CHOL100044 PO (09:34)
[2019-08-21] MEDS ORDERED: INSU100V30 SQ (09:34)
--- NOTE | 2019-08-21 09:35 | NUR ---
RT NOTE PT. RECEIVED WITH SOB ON 8L AEROSOL MASK WITH BREATHING TX. PLACED ON BI PAP PER MD ORDER. PT. TOLERATED WELL. PT. HAS BILATERAL FINE CRACKLES BREATH SOUNDS. BI PAP IS PLUGGED TO RED OUTLET AND ALARMS ARE SET AND AUDIBLE. BVM IS AT BEDSIDE. WILL CONTINUE TO MONITOR. Addendum: 08/21/19 at 0940 by CONNOR TORRES RT Amended: Links added.
[2019-08-21] MEDS ORDERED: VANCOMYCIN 1 GM in IV D5W 250 ML IV ONE (10:00)
[2019-08-21] MEDS ORDERED: PIPERACILLIN /TAZOBACTAM 3.375 G in IV D5W 50 ML IV ONE (10:00)
--- NOTE | 2019-08-21 10:09 | NUR ---
PANEL ON-CALL PAGED
--- NOTE | 2019-08-21 10:10 | NUR ---
GOT ICU BED 257 READY @ 1045
[2019-08-21 10:13] LABS: CALCIUM, SERUM 9.1 mg/dL (8.5-10.1); CARBON DIOXIDE 28 mmol/L (21-32); CHLORIDE 105 mmol/L (98-107); CREATININE 1.3 mg/dL (0.6-1.3); GLUCOSE 147 mg/dL (74-106); SODIUM SERUM 142 mmol/L (136-145); UREA NITROGEN, BLOOD 34 mg/dL (7-18)
[2019-08-21 10:26] LABS: ALANINE AMINOTRANSFERASE 22 U/L (12-78); ALBUMIN 3.1 g/dL (3.4-5.0); ALKALINE PHOSPHATASE 160 U/L (46-116); ASPARTATE AMINOTRANSFERASE 15 U/L (15-37); B-TYPE NATRIURETIC PEPTIDE 6010 PG/ML (0-125); BILIRUBIN,DIRECT 0.3 mg/dL (0.0-0.2); BILIRUBIN,TOTAL 0.9 mg/dL (0.2-1.0)
--- NOTE | 2019-08-21 10:29 | NUR ---
REPORT GIVEN TO DARLYN OF ICU
[2019-08-21] MEDS ORDERED: IV NS 0.9% 500 ML BAG IV ONE (10:30)
--- NOTE | 2019-08-21 10:30 | NUR ---
epic automotive airconditioning mechanic paged
--- NOTE | 2019-08-21 10:30 | NUR ---
DR TELLO AT BEDSIDE
[2019-08-21] MEDS ORDERED: ACETAMINOPHEN ES 500 MG TABLET ONE (10:40)
[2019-08-21] MEDS ORDERED: MAGNESIUM HYDROXIDE 30 ML UDC PO PRN (11:00)
[2019-08-21] MEDS ORDERED: CEFEPIME 1 GM in IV NS 0.9% 50 ML IV SCH (11:00)
[2019-08-21] MEDS ORDERED: INSULIN REGULAR, HUMAN 100 UNIT/ML 3 ML VIAL SQ PRN (11:00)
[2019-08-21] MEDS ORDERED: Medication Not On Formulary EA (Nebivolol Hcl (Bystolic) 2.5 MG) PO PRN (11:00)
[2019-08-21] MEDS ORDERED: HYDROCODONE/APAP 5/325MG 1 EACH TABLET PO PRN (11:00)
[2019-08-21] MEDS ORDERED: ZOLPIDEM TARTRATE 5 MG TABLET PO PRN (11:00)
[2019-08-21] MEDS ORDERED: MAG HYDROX/AL HYDROX/SIMETH 30 ML UDC PO PRN (11:00)
[2019-08-21] MEDS ORDERED: Z GUARD REMEDY 2 OZ OINT TP PRN (11:00)
[2019-08-21] MEDS ORDERED: ACETAMINOPHEN ES 500 MG TABLET PO ONE (11:00)
[2019-08-21] MEDS ORDERED: ONDANSETRON HCL/PF 4 MG/2 ML VIAL IVP PRN (11:00)
--- NOTE | 2019-08-21 11:10 | NUR ---
RT NOTE PT. WAS TRANSFER TO ICU ON NC 4L AND TOLERATED WELL. PT. PLACED BACK ON BI PAP WITH SAME SETTING. BI PAP MACHINE IS PLUGGED TO RED OUTLET AND ALARMS ARE SET AND AUDIBLE. BVM IS AT BEDSIDE. WILL CONTINUE TO MONITOR. Addendum: 08/21/19 at 1142 by CONNOR TORRES RT Amended: Links added.
--- NOTE | 2019-08-21 11:20 | NUR ---
RN INITIAL NOTES RECEIVED PT FROM ER VIA EDDIE. PT AWAKE, A/OX4. ON BIPAP. RR 29, 02 SAT 96%. PLACED COMFORTABLE IN BED. HOB ELEVATED. DENIES ANY PAIN. CONNECTED TO MONITOR. IV LINE IN PLACE. VANCO INFUSING. BODY ASSESSMENT DONE. SKIN INTACT. PT CONTINENT, PREFERS TO USE URINAL. DR TELLO AND DR JUAREZ AWARE OF ADMISSION. AWAITING FOR ORDERS. AT BEDSIDE
[2019-08-21] MEDS ORDERED: IV NS 0.9% 1,000 ML IV SCH (11:30)
[2019-08-21] MEDS ORDERED: DEXTROSE 50%-WATER 50 ML DISP.SYRIN IV PRN (11:30)
[2019-08-21] MEDS ORDERED: FEE PK DOSING 1 MIN EA MC ONE (11:39)
[2019-08-21 11:59] LABS: ABG BASE EXCESS -0.3 mmol/L; ABG OXYGEN SATURATION 93.1 % (92.0-98.5); ABG PCO2 47.7 mmHg (35.0-45.0); ABG PH 7.351 (7.350-7.450); AaDO2 84.9 mmHg; COHb 1.3 % (0.5-1.5); MetHb 0.6 % (0.0-1.5); O2Hb 91.3 % (94.0-97.0); SITE, ABG Left Radial
[2019-08-21] MEDS: IV D5/ 0.9% NACL 1,000 ML IV PRN (11:59)
[2019-08-21] MEDS ORDERED: LEVOFLOXACIN 750 MG /D5W 150ML 150 ML IV SCH (12:00)
--- NOTE | 2019-08-21 12:00 | NUR ---
PLACED PT. ON 5L NC PER DR. JUAREZ VERBAL ORDER. WILL CONTINUE TO MONITOR WORK OF BREATHING AND VITALS.
[2019-08-21] MEDS: BLOOD SUGAR DIAGNOSTIC 1 EACH STRIP IN SCH ×3 (12:23→21:08)
--- NOTE | 2019-08-21 12:23 | NUR ---
RT PATIENT REC'D IN ICU, POST ABG RESULTS PATIENT REMOVED FROM BIPAP AND PLACED ON 5L N/C RAVINDER WELL. PATIENT AWAKE + ALERT. NO SOB NOTED
[2019-08-21] MEDS: CEFEPIME 2 GM in IV D5W 100 ML IV SCH ×2 (12:26→23:04)
[2019-08-21] MEDS: INSULIN REGULAR, HUMAN 100 UNIT/ML 3 ML VIAL SQ PRN ×3 (12:27→21:14)
[2019-08-21] MEDS ORDERED: RIVAROXABAN 10 MG TABLET PO SCH ×2 (13:00→17:00)
[2019-08-21] MEDS: IPRATROPIUM NEB FS 0.5 MG/2.5 ML AMPUL.NEB NEB SCH ×2 (13:30→19:28)
[2019-08-21] MEDS ORDERED: FUROSEMIDE 40 MG TABLET PO SCH (17:00)
[2019-08-21] MEDS: MONTELUKAST SODIUM (10MG) 10 MG TABLET PO SCH (17:08)
[2019-08-21] MEDS: DOCUSATE SODIUM 100 MG CAPSULE PO SCH (17:08)
[2019-08-21] MEDS: Fluticasone/Umeclidin/Vilanter (Trelegy Ellipta 100-62.5 INH SCH (17:38)
[2019-08-21] MEDS: RIVAROXABAN 15 MG TABLET PO SCH (17:39)
[2019-08-21] MEDS ORDERED: QUETIAPINE FUMARATE 25 MG TABLET PO SCH (18:00)
--- NOTE | 2019-08-21 18:30 | NUR ---
DYE RANGE TENDER CLOSING NOTES Pt resting comfortably on his bed, not in any distress. No SOB while on NC at 5lpm. LFA G18 kept patent & intact w/ D5NS x 75cc/hr infusing well. Pt assisted w/ his needs. Safety precaution kept in place at all times w/ bed in lowest & locked pos. Call light placed w/in reach. Will endorse to PM RN for PRISCILLA.
[2019-08-21 18:35] LABS: CALCIUM, SERUM 8.4 mg/dL (8.5-10.1); CARBON DIOXIDE 28 mmol/L (21-32); CHLORIDE 105 mmol/L (98-107); CREATININE 1.9 mg/dL (0.6-1.3); GLUCOSE 213 mg/dL (74-106); POTASSIUM 4.9 mmol/L (3.5-5.1); SODIUM SERUM 140 mmol/L (136-145); UREA NITROGEN, BLOOD 40 mg/dL (7-18)
[2019-08-21 18:49] LABS: ALANINE AMINOTRANSFERASE 18 U/L (12-78); ALBUMIN 2.5 g/dL (3.4-5.0); ALKALINE PHOSPHATASE 117 U/L (46-116); ASPARTATE AMINOTRANSFERASE 13 U/L (15-37); BILIRUBIN,DIRECT 0.3 mg/dL (0.0-0.2); BILIRUBIN,TOTAL 0.9 mg/dL (0.2-1.0); TOTAL PROTEIN, SERUM 6.7 g/dL (6.4-8.2)
--- NOTE | 2019-08-21 19:30 | NUR ---
COMMERCIAL LITIGATION PARALEGAL INITIAL HSIFT NOTES RECEIVED PATIENT IN BED, AWAKE, ALERT AND ORIENTED X 3, ABLE TO VERBALIZE NEEDS. BREATHING EVEN AND NONLABORED, TOLERATING O2 VIA NC, CURRENTLY @ 6 LPM, NO S/S OF RESPIRATORY DISTRESS. BEDSIDE CLASSIFICATION OFFICER READS 100% VPACING, HR 60 BPM, WITH UNDERLYING RHYTHM AFIB/AFLUTTER. LEFT FOREARM IV PATENT AND INTACT, IV FLUIDS @ 75ML/HR, FREE FROM ANY S/S OF [id number] OR PHLEBITIS. PLAN OF CARE DISCUSSED WITH THE PATIENT, WHOM VERBALIZES UNDERSTANDING. WILL CONTINUE TO CLOSELY MONITOR THE PATIENT
--- NOTE | 2019-08-21 20:21 | NUR ---
GUN STRIPER NOTES RECEIVED CALL FROM PATIENT'S FAMILY MEMBER BENITA, ASKING TO MAKE SURE PATIENT GETS HIS SEROQUEL DOSE TONIGHT, DOSE PREVIOUSLY DC'd BY DAY SHIFT PROVIDER. CALLED AND SPOKE TO CARTON WAXING MACHINE OPERATOR PROVIDER DR SMILEY, WITH ORDER TO RESUME SEROQUEL 12.5MG PO DAILY QHS. WILL CARRY OUT NEW ORDERS AND CONTINUE TO CLOSELY MONITOR
[2019-08-21] MEDS: QUETIAPINE FUMARATE 25 MG TABLET PO SCH (21:08)
[2019-08-21] MEDS: ACETAMINOPHEN 325 MG TABLET PO PRN (21:20)
[2019-08-22] VITALS (20 sets, daily range): BP systolic 100–130; BP diastolic 41–65
[2019-08-22] MEDS: IPRATROPIUM NEB FS 0.5 MG/2.5 ML AMPUL.NEB NEB SCH ×4 (01:35→20:01)
--- NOTE | 2019-08-22 01:40 | NUR ---
FACULTY PHYSICIAN NOTES PATIENT'S O2 TITRATED TO 3LPM VIA NC, TOLERATING WELL, NO RESPIRATORY DISTRESS NOTED, WILL CLOSELY MONITOR
[2019-08-22] MEDS: IV D5/ 0.9% NACL 1,000 ML IV PRN (01:59)
[2019-08-22 04:29] LABS: BASOPHILS % (AUTO) 0.3 % (0.0-2.0); EOSINOPHILS % (AUTO) 0.6 % (0.0-6.0); HEMATOCRIT 38 % (39-51); LYMPHOCYTES # (AUTO) 1.2 /CMM (0.8-4.8); LYMPHOCYTES % (AUTO) 9.3 % (20.0-44.0); MEAN CORPUSCULAR HGB CONC 32 g/dl (31.0-36.0); MEAN CORPUSCULAR VOLUME 85 fL (80-96); MONOCYTES # (AUTO) 0.9 /CMM (0.1-1.30); MONOCYTES % (AUTO) 6.9 % (2.0-12.0); NEUTROPHILS # (AUTO) 10.3 /CMM (1.8-8.9); NEUTROPHILS % (AUTO) 82.9 % (43.0-81.0); PLATELET COUNT (AUTO) 228 /CMM (150-450); RED BLOOD CELL COUNT(AUTO) 4.47 MIL/uL (4.5-6.0); WHITE BLOOD COUNT (AUTO) 12.4 K/uL (4.3-11.0)
[2019-08-22 04:40] LABS: CALCIUM, SERUM 8.4 mg/dL (8.5-10.1); CARBON DIOXIDE 32 mmol/L (21-32); CHLORIDE 107 mmol/L (98-107); CREATININE 1.6 mg/dL (0.6-1.3); GLUCOSE 135 mg/dL (74-106); MAGNESIUM 2.9 mg/dL (1.8-2.4); PHOSPHORUS 4.1 mg/dL (2.5-4.9); POTASSIUM 4.9 mmol/L (3.5-5.1); SODIUM SERUM 141 mmol/L (136-145); UREA NITROGEN, BLOOD 46 mg/dL (7-18)
[2019-08-22 04:53] LABS: CHOLESTEROL 95 mg/dL (<200); HDL CHOLESTEROL 33 mg/dL (40-60); LDL 53 mg/dL (0-99); TRIGLYCERIDES 55 mg/dL (30-150)
[2019-08-22] MEDS ORDERED: VANCOMYCIN 1.25 GM in IV D5W 250 ML IV SCH (05:00)
[2019-08-22] MEDS ORDERED: VANCOMYCIN 1 GM in IV D5W 250 ML IV SCH ×2 (05:00→23:00)
--- NOTE | 2019-08-22 07:00 | NUR ---
RN NOTES RECEIVED PATIENT SITTING ON THE EDGE OF THE BED AWAKE, ALERT AND ORIENTED X 3, ABLE TO VERBALIZE NEEDS. BREATHING EVEN AND NONLABORED, ON 02 AT 2L N/C , NO SOB NOTED,O2 SAT WNL, ON TELE , 100% V-PACING, HR 60 BPM, WITH UNDERLYING RHYTHM A.FIB/AFLUTTER. LEFT FOREARM IV SITE , CLEAN, DRY AND INTACT, IV FLUIDS @ 75ML/HR, RUNNING , PLAN OF CARE DISCUSSED WITH THE PATIENT, WHOM VERBALIZES UNDERSTANDING. WILL CONTINUE TO MONITOR.
--- NOTE | 2019-08-22 07:00 | NUR ---
CASINO FLOOR SUPERVISOR CLOSING NOTES PATIENT RESTING COMFORTABLY IN BED. NO ACUTE CHANGES THROUGHOUT THE SHIFT. VITALS WNL, NO EPISODE OF FEVER. BEDSIDE REPORT GIVEN TO DAY SHIFT NURSE FOR CONTINUITY OF CARE
[2019-08-22] MEDS: INSULIN REGULAR, HUMAN 100 UNIT/ML 3 ML VIAL SQ PRN ×2 (07:13→21:49)
[2019-08-22] MEDS: BLOOD SUGAR DIAGNOSTIC 1 EACH STRIP IN SCH ×4 (07:13→21:47)
[2019-08-22] MEDS: LEVOTHYROXINE SODIUM 25 MCG TABLET PO SCH (07:13)
[2019-08-22] MEDS: INSULIN GLARGINE, 100 UNIT/ML CARTRIDGE SQ SCH (07:35)
[2019-08-22] MEDS: FOLIC ACID 1 MG TABLET PO SCH (08:14)
[2019-08-22] MEDS: VIT B CMPLX 3/FA/VIT C/BIOTIN 1 TAB TABLET PO SCH (08:14)
[2019-08-22] MEDS: FERROUS SULFATE (325 MG) 325 MG/TAB TABLET PO SCH (08:14)
[2019-08-22] MEDS: SERTRALINE HCL 50 MG TABLET PO SCH (08:14)
[2019-08-22] MEDS: FINASTERIDE (5 MG) 5 MG TABLET PO SCH (08:15)
[2019-08-22] MEDS: AMIODARONE HCL 200 MG TABLET PO SCH (08:15)
[2019-08-22 08:25] LABS: ABG BASE EXCESS -1.4 mmol/L; ABG OXYGEN SATURATION 95.2 % (92.0-98.5); ABG PCO2 47.3 mmHg (35.0-45.0); ABG PH 7.337 (7.350-7.450); ABG PO2 84.6 mmHg (75.0-100.0); AaDO2 88.2 mmHg; COHb 0.7 % (0.5-1.5); MetHb 0.3 % (0.0-1.5); O2Hb 94.2 % (94.0-97.0); SITE, ABG Right Radial
[2019-08-22] MEDS ORDERED: POTASSIUM CHLORIDE 10 MEQ TABLET.SA PO SCH (09:00)
[2019-08-22] MEDS ORDERED: CHOLECALCIFEROL 1,000 UNIT TABLET (VIT D3) PO SCH (09:00)
[2019-08-22] MEDS: FUROSEMIDE 40 MG TABLET PO SCH ×2 (09:48→16:10)
[2019-08-22] MEDS: CEFEPIME 2 GM in IV D5W 100 ML IV SCH (11:31)
--- NOTE | 2019-08-22 12:00 | NUR ---
RN NOTES RA O2 SAT 87%, PT LEFT ON 1L O2 N/C, O2 SAT 93-94% ON 1L N/C . NO DISTRESS NOTED .
--- NOTE | 2019-08-22 14:00 | NUR ---
RN NOTES PT SITTING ON A CHAIR , STABLE , ELIDA ANY DISTRESS . CONTINUE TO MONITOR
[2019-08-22] MEDS ORDERED: GENTLE IRON PO (14:59)
[2019-08-22] MEDS: MUPIROCIN OINT 2% 22 GM TUBE SCH ×2 (16:09→21:38)
[2019-08-22] MEDS: RIVAROXABAN 15 MG TABLET PO SCH (16:10)
--- NOTE | 2019-08-22 17:00 | NUR ---
RN NOTES PT STABLE, CONTINUE TO MONITOR.
[2019-08-22 17:12] LABS: BILIRUBIN,URINE NEGATIVE (NEGATIVE); BLOOD, URINE NEGATIVE Ery/uL (NEGATIVE); COLOR,URINE YELLOW (YELLOW); KETONES,URINE NEGATIVE (NEGATIVE); LEUKOCYTE ESTERASE ,URINE NEGATIVE (NEGATIVE); NITRITE, URINE NEGATIVE (NEGATIVE); PROTEIN,URINE TRACE mg/dl (NEGATIVE); UGLUCOSE NEGATIVE (NEGATIVE); UROBILINOGEN,URINE 0.2 EU/dL (0.2)
[2019-08-22] MEDS: DOCUSATE SODIUM 100 MG CAPSULE PO SCH (17:12)
[2019-08-22] MEDS: MONTELUKAST SODIUM (10MG) 10 MG TABLET PO SCH (17:12)
[2019-08-22] MEDS: Fluticasone/Umeclidin/Vilanter (Trelegy Ellipta 100-62.5 INH SCH (17:17)
[2019-08-22 17:20] LABS: CREATININE, URINE 119.3 MG/DL (30.0-125.0); URINE TOTAL PROTEIN 63.9 mg/dL (0-11.9)
[2019-08-22 17:41] LABS: APPEARANCE,URINE SLIGHTLY HAZY (CLEAR); RBC,URINE 0-2 /HPF (0-2)
[2019-08-22 17:42] LABS: BACTERIA,URINE Rare /HPF (None Seen); HYALINE CASTS, URINE Few /LPF (None Seen); SQUAMOUS EPITHELIAL CELL,UR Few /HPF (None Seen)
[2019-08-22] MEDS: ACETAMINOPHEN 325 MG TABLET PO PRN (18:19)
--- NOTE | 2019-08-22 18:50 | NUR ---
RN NOTES REPORT GIVEN TO JULIANA HERNANDEZ FOR CONTINUITY OF CARE, PT TRANSFERD TO 107, ANGEL STATUS VIA ACLS PROTOCOL IN STABLE CONDITION, WITH ALL HIS BELONGINGS.
--- NOTE | 2019-08-22 19:15 | NUR ---
RN NOTE PT STABLE, WILL ENDORSE TO SAW MAKER NURSE.
--- NOTE | 2019-08-22 20:00 | NUR ---
RN NOTES - RECEIVED PATIENT IN BED AWAKE, ALERT AND ORIENTED X 3, ABLE TO VERBALIZE NEEDS. BREATHING EVEN AND NONLABORED, ON 02 AT 1L N/C , NO SOB NOTED,O2 SAT WNL, ON TELE , 100% V-PACING, HR 60 BPM, WITH UNDERLYING RHYTHM A.FIB/AFLUTTER. LEFT FOREARM IV SITE , CLEAN, DRY AND INTACT, PLAN OF CARE DISCUSSED WITH THE PATIENT, WHOM VERBALIZES UNDERSTANDING. WILL CONTINUE TO MONITOR.
[2019-08-22] MEDS: QUETIAPINE FUMARATE 25 MG TABLET PO SCH (21:39)
[2019-08-22 21:49] LABS: EOSINOPHIL,URINE None Seen
[2019-08-23] VITALS: BP 121/54
[2019-08-23] MEDS: CEFEPIME 2 GM in IV D5W 100 ML IV SCH ×3 (00:14→23:30)
[2019-08-23] MEDS: IPRATROPIUM NEB FS 0.5 MG/2.5 ML AMPUL.NEB NEB SCH ×4 (01:07→19:33)
[2019-08-23 04:00] VITALS: BP 124/64
--- NOTE | 2019-08-23 06:55 | NUR ---
RN NOTE PT STABLE, WILL ENDORSE TO AM SHIFT NURSE.
[2019-08-23] MEDS ORDERED: IPRATROPIUM NEB FS 0.5 MG/2.5 ML AMPUL.NEB NEB PRN (07:00)
[2019-08-23] MEDS ORDERED: ALBUTEROL FS 2.5 MG/0.5 ML VIAL.NEB NEB PRN (07:00)
[2019-08-23 07:03] LABS: BASOPHILS # (AUTO) 0.1 /CMM (0.0-0.2); BASOPHILS % (AUTO) 0.8 % (0.0-2.0); HEMATOCRIT 36 % (39-51); HEMOGLOBIN 11.6 g/dL (13.5-17.5); LYMPHOCYTES # (AUTO) 1.3 /CMM (0.8-4.8); LYMPHOCYTES % (AUTO) 12.1 % (20.0-44.0); MEAN CORPUSCULAR HGB CONC 32 g/dl (31.0-36.0); MEAN CORPUSCULAR VOLUME 83 fL (80-96); MONOCYTES # (AUTO) 0.8 /CMM (0.1-1.30); MONOCYTES % (AUTO) 7.5 % (2.0-12.0); NEUTROPHILS # (AUTO) 8.2 /CMM (1.8-8.9); NEUTROPHILS % (AUTO) 76.6 % (43.0-81.0); PLATELET COUNT (AUTO) 215 /CMM (150-450); RED BLOOD CELL COUNT(AUTO) 4.36 MIL/uL (4.5-6.0); WHITE BLOOD COUNT (AUTO) 10.7 K/uL (4.3-11.0)
--- NOTE | 2019-08-23 07:30 | NUR ---
TD RN AM NOTES RECEIVED PATIENT SITTING IN BED, ALERT AND ORIENTED X 4, ABLE TO VERBALIZE NEEDS. ON 02 AT 2L N/C , NO SOB NOTED, O2 SAT WNL, BREATHING EVEN AND RESPIRATION UNLABORED, 100% V-PACING, HR 60s BPM, WITH UNDERLYING RHYTHM A.FIB/AFLUTTER. MD AWARE. DENIES ANY CHEST PAIN OR DISCOMFORT, LEFT FOREARM G18 IV SITE , FLUSHES WELL, SITE CLEAR. CLEAN, DRY AND INTACT, BRP, AMBULATORYM, PLAN OF CARE DISCUSSED WITH THE PATIENT, VERBALIZED UNDERSTANDING. SAFETY MEASURES IN PLACE. CALL LIGHT WITHIN REACH.WILL CONTINUE TO MONITOR.
[2019-08-23 07:47] LABS: ALBUMIN 2.4 g/dL (3.4-5.0); BILIRUBIN,TOTAL 0.7 mg/dL (0.2-1.0); CALCIUM, SERUM 8.4 mg/dL (8.5-10.1); CREATININE 1.1 mg/dL (0.6-1.3); PHOSPHORUS 2.6 mg/dL (2.5-4.9); POTASSIUM 4.1 mmol/L (3.5-5.1); TOTAL PROTEIN, SERUM 6.7 g/dL (6.4-8.2)
[2019-08-23 08:00] VITALS: BP 132/63
[2019-08-23] MEDS: BLOOD SUGAR DIAGNOSTIC 1 EACH STRIP IN SCH ×4 (08:00→21:20)
[2019-08-23] MEDS: FINASTERIDE (5 MG) 5 MG TABLET PO SCH (08:12)
[2019-08-23] MEDS: FOLIC ACID 1 MG TABLET PO SCH ×2 (08:17→08:38)
[2019-08-23] MEDS: FERROUS SULFATE (325 MG) 325 MG/TAB TABLET PO SCH (08:17)
[2019-08-23] MEDS: LEVOTHYROXINE SODIUM 25 MCG TABLET PO SCH (08:17)
[2019-08-23] MEDS: FUROSEMIDE 40 MG TABLET PO SCH (08:17)
[2019-08-23] MEDS: VIT B CMPLX 3/FA/VIT C/BIOTIN 1 TAB TABLET PO SCH (08:17)
[2019-08-23] MEDS: CHOLECALCIFEROL 1,000 UNIT TABLET (VIT D3) PO SCH (08:18)
[2019-08-23] MEDS: INSULIN GLARGINE, 100 UNIT/ML CARTRIDGE SQ SCH (08:24)
[2019-08-23] MEDS: ACETAMINOPHEN 325 MG TABLET PO PRN (08:44)
[2019-08-23] MEDS: MUPIROCIN OINT 2% 22 GM TUBE SCH ×2 (08:50→21:23)
[2019-08-23] MEDS: AMIODARONE HCL 200 MG TABLET PO SCH (08:52)
[2019-08-23] MEDS: SERTRALINE HCL 50 MG TABLET PO SCH ×3 (08:53→11:51)
--- NOTE | 2019-08-23 09:30 | NUR ---
TD RN NOTES 07 ACCUCHECK - BS 90 MG/DL. NO INSULIN COVERAGE AT THIS TIME. DUE MEDS GIVEN
[2019-08-23] MEDS ORDERED: BUMETANIDE INJ 4 MG in IV D5W 24 ML IV ONE (10:00)
[2019-08-23] MEDS: VANCOMYCIN 1 GM in IV D5W 250 ML IV SCH (11:57)
[2019-08-23 12:00] VITALS: BP 132/65
[2019-08-23 16:00] VITALS: BP 121/61
[2019-08-23] MEDS: DOCUSATE SODIUM 100 MG CAPSULE PO SCH (17:23)
[2019-08-23] MEDS: MONTELUKAST SODIUM (10MG) 10 MG TABLET PO SCH (17:23)
[2019-08-23] MEDS: RIVAROXABAN 15 MG TABLET PO SCH (17:25)
[2019-08-23] MEDS: INSULIN REGULAR, HUMAN 100 UNIT/ML 3 ML VIAL SQ PRN (17:28)
[2019-08-23] MEDS: Fluticasone/Umeclidin/Vilanter (Trelegy Ellipta 100-62.5 INH SCH (18:16)
--- NOTE | 2019-08-23 18:56 | NUR ---
TD RN AM NOTES WILL ENDOORSE TO PM SHIFT, PATIENT AWAKE AND ORIENTED X 4, ABLE TO VERBALIZE NEEDS . ON 02 AT 2L N/C , NO SOB NOTED, O2 SAT WNL, BREATHING EVEN AND RESPIRATION UNLABORED, 97% V-PACING, HR 60s BPM, WITH UNDERLYING RHYTHM A.FIB/AFLUTTER. MD AWARE. DENIES ANY CHEST PAIN. DURING SHIFT PATIENT HAD PAIN LEVEL 3/10 GENERALIZED PAIN. PROVIDED TYLENOL . LEFT FOREARM G18 IV SITE , TKO INFUSED STOP PER WIFES REQUEST. FLUSHES WELL, SITE CLEAR. CLEAN, DRY AND INTACT, BRP, AMBULATORY, PLAN OF CARE DISCUSSED WITH THE PATIENT AND , VERBALIZED UNDERSTANDING. SAFETY MEASURES IN PLACE. CALL LIGHT WITHIN REACH.WILL CONTINUE TO MONITOR.
--- NOTE | 2019-08-23 19:00 | NUR ---
RECEIVED PATIENT AWAKE,ALERT,ORIENTED,COHERENT AND APPROPRIATE.DENIES ANY PAIN,NOT IN ANY RESPIRATORY DISTRESS. 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
[2019-08-23 20:00] VITALS: BP 133/56
--- NOTE | 2019-08-23 21:00 | NUR ---
PATIENT COMPLAINING ABOUT HIS ROOM BEING COLD,ATTEMPTED TO ADJUST THERMOSTAT BUT DID NOT WORK ,MAINTENANCE IS AWARE. BUT CHARGE NURSE DECIDE TO MOVE PATIENT TO A WARMER ROOM IN 119. PATIENT SEEMS SATISFIED WITH THE NEW ROOM.
[2019-08-23] MEDS: QUETIAPINE FUMARATE 25 MG TABLET PO SCH (21:20)
[2019-08-24] VITALS: BP 108/47
--- NOTE | 2019-08-24 | NUR ---
remains stable,asleep,not in any respiratory distress.
[2019-08-24] MEDS: VANCOMYCIN 1 GM in IV D5W 250 ML IV SCH (00:01)
[2019-08-24] MEDS: IPRATROPIUM NEB FS 0.5 MG/2.5 ML AMPUL.NEB NEB SCH ×4 (01:26→20:06)
[2019-08-24 04:00] VITALS: BP 130/67
--- NOTE | 2019-08-24 04:00 | NUR ---
REMAINS STABLE,NO SOB,ASLEEP MOST OF THE NIGHT. 0600 AWAKE,ALERT,EWANTS TO CHECK HIS BLOOD SUGAR BECAUSE PER HIM ,HE'S SLEEPING TOO MUCH, AR=[id number].NEEDS ATTENDED.
[2019-08-24 06:55] LABS: CALCIUM, SERUM 8.5 mg/dL (8.5-10.1); CREATININE 0.9 mg/dL (0.6-1.3); POTASSIUM 3.7 mmol/L (3.5-5.1)
--- NOTE | 2019-08-24 07:00 | NUR ---
REMAINS STABLE. PENDING PT TODAY.REPORT GIVEN TO KYA HERNANDEZ
--- NOTE | 2019-08-24 07:10 | NUR ---
RN NOTES RECEIVED PT ON BED, AOX4, ABLE TO VERBALIZE NEEDS . ON 02 AT 2L N/C , NO SOB NOTED, O2 SAT WNL, BREATHING EVEN AND RESPIRATION UNLABORED,ON TELE , V-PACING, HR 60s BPM, WITH UNDERLYING RHYTHM A.FIB/AFLUTTER. MD AWARE.LEFT FOREARM G18 IV SITE , CLEAN, DRY AND INTACT, SR UP X3,SAFETY MEASURES IN PLACE. CALL LIGHT WITHIN EASY REACH.WILL CONTINUE TO MONITOR.
[2019-08-24 08:00] VITALS: BP 137/77
[2019-08-24] MEDS: VIT B CMPLX 3/FA/VIT C/BIOTIN 1 TAB TABLET PO SCH (08:22)
[2019-08-24] MEDS: CHOLECALCIFEROL 1,000 UNIT TABLET (VIT D3) PO SCH (08:22)
[2019-08-24] MEDS: FINASTERIDE (5 MG) 5 MG TABLET PO SCH (08:22)
[2019-08-24] MEDS: FERROUS SULFATE (325 MG) 325 MG/TAB TABLET PO SCH ×2 (08:22→09:00)
[2019-08-24] MEDS: FOLIC ACID 1 MG TABLET PO SCH (08:22)
[2019-08-24] MEDS: SERTRALINE HCL 50 MG TABLET PO SCH (08:22)
[2019-08-24] MEDS: LEVOTHYROXINE SODIUM 25 MCG TABLET PO SCH (08:22)
[2019-08-24] MEDS: AMIODARONE HCL 200 MG TABLET PO SCH (08:23)
[2019-08-24] MEDS: BLOOD SUGAR DIAGNOSTIC 1 EACH STRIP IN SCH ×4 (08:23→22:29)
[2019-08-24] MEDS: INSULIN GLARGINE, 100 UNIT/ML CARTRIDGE SQ SCH (08:25)
[2019-08-24] MEDS: MUPIROCIN OINT 2% 22 GM TUBE SCH ×2 (08:27→20:55)
--- NOTE | 2019-08-24 10:49 | NUR ---
RN NOTES REPORT GIVEN TO VERONICA HERNANDEZ FOR CONTINUITY OF CARE
--- NOTE | 2019-08-24 11:00 | NUR ---
BUCKET PUSHER NOTE PATIENT ALERT AND ORINTED X3 AT [id number]. NASLA CANULA AT 2 LITERS. SKIN INTACT BRP TO RESTROOM. CARDIAC DIET. BLOOD SUGAR CONTROLED WITH CURRENT MEDICATION. CXR RESULTED MD AWARE. PT TO FOLLOW UP WITH PATIENT. VANCO TROPH WAS ELEVATED DID NOT ADMIN ON THIS SHIFT. IV PATENT AND INTACT, PATIENT OUTPUT INCREASED 800 URINE. SID3E RAILS UP, BED IN LOW POSITION, CALL LIGHT WITHIN REACH. ALL NEEDS MET AT THIS TIME.
[2019-08-24 11:37] LABS: BASOPHILS # (AUTO) 0.1 /CMM (0.0-0.2); BASOPHILS % (AUTO) 0.7 % (0.0-2.0); HEMATOCRIT 37 % (39-51); HEMOGLOBIN 11.9 g/dL (13.5-17.5); LYMPHOCYTES # (AUTO) 1.2 /CMM (0.8-4.8); LYMPHOCYTES % (AUTO) 11.8 % (20.0-44.0); MEAN CORPUSCULAR HGB CONC 32 g/dl (31.0-36.0); MEAN CORPUSCULAR VOLUME 83 fL (80-96); MONOCYTES # (AUTO) 0.8 /CMM (0.1-1.30); MONOCYTES % (AUTO) 8.1 % (2.0-12.0); NEUTROPHILS # (AUTO) 7.7 /CMM (1.8-8.9); NEUTROPHILS % (AUTO) 76.4 % (43.0-81.0); PLATELET COUNT (AUTO) 218 /CMM (150-450); RED BLOOD CELL COUNT(AUTO) 4.46 MIL/uL (4.5-6.0); WHITE BLOOD COUNT (AUTO) 10.1 K/uL (4.3-11.0)
[2019-08-24 12:00] VITALS: BP_SYST 132; BP_SYST 136; BP_DIAS 49; BP_DIAS 77
[2019-08-24 12:06] LABS: PTH, INTACT 41 pg/mL (15-65)
[2019-08-24] MEDS: FUROSEMIDE 40 MG TABLET PO SCH (12:25)
[2019-08-24] MEDS: CEFEPIME 2 GM in IV D5W 100 ML IV SCH ×2 (12:26→23:21)
[2019-08-24 13:11] LABS: *SPE A/G RATIO 0.8 (0.7-1.7); *SPE ALBUMIN 2.5 g/dL (2.9-4.4); *SPE ALPHA-1-GLOBULIN 0.4 g/dL (0.0-0.4); *SPE ALPHA-2-GLOBULIN 0.8 g/dL (0.4-1.0); *SPE BETA GLOBULIN 0.8 g/dL (0.7-1.3); *SPE GLOBULIN, TOTAL 3.2 g/dL (2.2-3.9); *SPE M-SPIKE Not Observed g/dL (Not Observed); *SPEGAMMA GLOBULIN 1.2 g/dL (0.4-1.8)
[2019-08-24] MEDS ORDERED: BUMETANIDE INJ 4 MG in IV D5W 24 ML IV ONE (14:30)
[2019-08-24 16:00] VITALS: BP 141/51
--- NOTE | 2019-08-24 16:00 | NUR ---
HOME MEDICATION PHARMACYH CALLED RN SPOKE TO ABOUT HOME MEDICATION, WILL BRING FROM HOME IF PATIETN HIS HERE IN 5 DAYS. CHANGED ORDER TO GENTLE IRON SUPPLIED BY FAMILY
[2019-08-24] MEDS: RIVAROXABAN 15 MG TABLET PO SCH (17:03)
[2019-08-24] MEDS: Fluticasone/Umeclidin/Vilanter (Trelegy Ellipta 100-62.5 INH SCH (17:05)
[2019-08-24] MEDS: MONTELUKAST SODIUM (10MG) 10 MG TABLET PO SCH (17:16)
[2019-08-24] MEDS: DOCUSATE SODIUM 100 MG CAPSULE PO SCH (17:16)
[2019-08-24] MEDS: ACETAMINOPHEN 325 MG TABLET PO PRN (17:18)
--- NOTE | 2019-08-24 19:15 | NUR ---
RN CLOSING NOTE PATIENT ALERT AND ORINTED X3 AT [id number]. [place] CANULA AT 2 LITERS. SKIN INTACT BRP TO RESTROOM. CARDIAC DIET. BLOOD SUGAR CONTROLLED WITH CURRENT MEDICATION. CXR RESULTED MD AWARE. PT TO FOLLOW UP WITH PATIENT. VANCO TROPH WAS ELEVATED DID NOT ADMIN ON THIS SHIFT. IV PATENT AND INTACT, PATIENT OUTPUT INCREASED 800 URINE. SID3E RAILS UP, BED IN LOW POSITION, CALL LIGHT WITHIN REACH. ALL NEEDS MET AT THIS TIME.
[2019-08-24 20:00] VITALS: BP 128/57
--- NOTE | 2019-08-24 20:00 | NUR ---
lisa rn notes pts in bed awake a/ox3 able to make needs known , pts on monitor av pacing on the monitor , no sob no distress noted , pts on 2liters of 02 via nc sating 97%due meds given as ordered ,all needs attended too v/s stable afebrile . kept pts clean dry and comfortable, will continue to monitor pts.
[2019-08-24] MEDS: VANCOMYCIN 0.75 GM in IV D5W 250 ML IV SCH (20:51)
[2019-08-24] MEDS: QUETIAPINE FUMARATE 25 MG TABLET PO SCH (21:02)
--- NOTE | 2019-08-24 22:00 | NUR ---
lisa rn notes blood sugar for 10pm is 159mg/dl 2 units of regular insulin given per sliding scale given pts on po diet.
[2019-08-24] MEDS: INSULIN REGULAR, HUMAN 100 UNIT/ML 3 ML VIAL SQ PRN (22:29)
[2019-08-25] VITALS: BP 130/61
[2019-08-25] MEDS: IPRATROPIUM NEB FS 0.5 MG/2.5 ML AMPUL.NEB NEB SCH ×5 (01:11→19:41)
--- NOTE | 2019-08-25 01:13 | NUR ---
RT PT REFUSED MEDS. PT WANTS TO SLEEP. NO SOB OR RESP DISTRESS NOTED AT THIS TIME.
[2019-08-25 04:00] VITALS: BP 123/63
[2019-08-25 06:48] LABS: CALCIUM, SERUM 8.7 mg/dL (8.5-10.1); POTASSIUM 3.6 mmol/L (3.5-5.1)
[2019-08-25] MEDS: LEVOTHYROXINE SODIUM 25 MCG TABLET PO SCH (07:29)
[2019-08-25] MEDS: BLOOD SUGAR DIAGNOSTIC 1 EACH STRIP IN SCH ×4 (07:32→22:31)
--- NOTE | 2019-08-25 07:39 | NUR ---
ANGEL RN NOTE RECEIVED PATIENT IN BED , ALERT , ORIENTED X3 , ON 2L NC, NO SOB NOTED , LT FA HL INTACT FLUSHED WELL , BED IN LOWEST AND LOCKED POSITION , PLAN OF CARE DISCUSSED WITH PATIENT , AT BEDSIDE , BLOOD SUGAR CHECKED 95 MG\DL ABLE TO USE URINAL , CHEST X RAY DONE ORDERED, ON TELE MONITOR AV PACING HR 61 , WILL CONT TO MONITOR CLOSELY
[2019-08-25 08:00] VITALS: BP 138/64
[2019-08-25] MEDS: AMIODARONE HCL 200 MG TABLET PO SCH (08:39)
[2019-08-25] MEDS: VIT B CMPLX 3/FA/VIT C/BIOTIN 1 TAB TABLET PO SCH (08:39)
[2019-08-25] MEDS: FOLIC ACID 1 MG TABLET PO SCH (08:39)
[2019-08-25] MEDS: FINASTERIDE (5 MG) 5 MG TABLET PO SCH (08:39)
[2019-08-25] MEDS: SERTRALINE HCL 50 MG TABLET PO SCH (08:39)
[2019-08-25] MEDS: CHOLECALCIFEROL 1,000 UNIT TABLET (VIT D3) PO SCH (08:39)
[2019-08-25] MEDS: FUROSEMIDE 40 MG TABLET PO SCH (08:39)
[2019-08-25] MEDS: GENTLE IRON PO SCH (08:41)
[2019-08-25] MEDS: VANCOMYCIN 0.75 GM in IV D5W 250 ML IV SCH ×2 (08:44→21:22)
[2019-08-25] MEDS: INSULIN GLARGINE, 100 UNIT/ML CARTRIDGE SQ SCH (08:50)
[2019-08-25] MEDS: MUPIROCIN OINT 2% 22 GM TUBE SCH ×2 (08:50→21:17)
--- NOTE | 2019-08-25 08:54 | NUR ---
ANGEL RN NOTE VANCOMYCIN HELD ,VANCO BLOOD LEVEL 21 PHARMACY NOTIFIED
[2019-08-25] MEDS: CEFEPIME 2 GM in IV D5W 100 ML IV SCH ×2 (11:24→23:09)
[2019-08-25] MEDS: INSULIN REGULAR, HUMAN 100 UNIT/ML 3 ML VIAL SQ PRN ×3 (11:31→22:29)
--- NOTE | 2019-08-25 11:48 | NUR ---
ANGEL HERNANDEZ NOTE UP ON CHAIR , AT BESIDE, ALL NEEDS ATTENDED ON O2 ORDERED, SEEN BY DR MULLIGAN AND DR JUAREZ PLATE MOUNTER Addendum: 08/25/19 at 1236 by MORRIS TIAN RN NEW HL ON RT HAND YAMILET 20 INSERTED WITH GOOD BLOOD RETURN
[2019-08-25 12:00] VITALS: BP 125/62
[2019-08-25] MEDS: ACETAMINOPHEN 325 MG TABLET PO PRN (12:24)
--- NOTE | 2019-08-25 14:31 | NUR ---
ANGEL RN NOTE SITTING ON CHAIR READING NEWSPAPER, NOT IN DISTRESS ,CALL LIGHT WITHIN REACH
--- NOTE | 2019-08-25 14:38 | NUR ---
ANGEL HERNANDEZ NOTE ON BREATHING TX BY RT, FRIDA FORTEES ATTENDED Addendum: 08/25/19 at 1439 by MORRIS TIAN RN ALL NEEDS ATTENDED
[2019-08-25 16:00] VITALS: BP 118/56
--- NOTE | 2019-08-25 16:00 | NUR ---
lisa rn note all needs attended .on breathing tx , at bedside .not in distress
[2019-08-25] MEDS: RIVAROXABAN 15 MG TABLET PO SCH (16:10)
[2019-08-25] MEDS: Fluticasone/Umeclidin/Vilanter (Trelegy Ellipta 100-62.5 INH SCH (16:25)
[2019-08-25] MEDS: DOCUSATE SODIUM 100 MG CAPSULE PO SCH (17:24)
[2019-08-25] MEDS: MONTELUKAST SODIUM (10MG) 10 MG TABLET PO SCH (17:24)
--- NOTE | 2019-08-25 18:24 | NUR ---
ANGEL RN NOTE AT BEDSIDE ID RN MATIASA AT BEDSIDE DISCUSSING WITH OF PATIENT ABOUT BLOOD CX , RESULT
[2019-08-25 20:00] VITALS: BP 124/62
[2019-08-25] MEDS: QUETIAPINE FUMARATE 25 MG TABLET PO SCH (21:17)
--- NOTE | 2019-08-25 22:00 | NUR ---
lisa rn notes blood sugar for 10pm is 211mg/dl 4 units of regular insulin given per sliding scale given pts on po diet.
[2019-08-26] VITALS: BP_SYST 125; BP_SYST 132; BP_DIAS 51; BP_DIAS 82
[2019-08-26] MEDS: IPRATROPIUM NEB FS 0.5 MG/2.5 ML AMPUL.NEB NEB SCH ×3 (01:28→13:30)
[2019-08-26 04:00] VITALS: BP 118/50
[2019-08-26 07:07] LABS: CALCIUM, SERUM 8.9 mg/dL (8.5-10.1); CREATININE 1.2 mg/dL (0.6-1.3); POTASSIUM 3.7 mmol/L (3.5-5.1)
--- NOTE | 2019-08-26 07:30 | NUR ---
INITIAL NOTES,AM RECEIVED BEDSIDE REPORT FROM NIGHT NURSE. PT ALERT, AWAKE, ORIENTED. ON NASAL CANULA, NO DISTRESS. AT BEDSIDE. PT HAS PACEMAKER, AV/V PACING. PT SITTING ON SIDE OF BED. ABLE TO USE BEDSIDE COMMODE AND URINAL. PIV PATENT AND INTACT. ORDERS FOR PICC LINE PLACED. ALL NEEDS WILL BE ATTENDED TO, SAFETY MEASURES TAKEN, BED IN LOW POSITION, SIDE RAILS UP, CALL LIGHT WITHIN REACH.
[2019-08-26] MEDS: BLOOD SUGAR DIAGNOSTIC 1 EACH STRIP IN SCH ×3 (07:50→17:21)
[2019-08-26] MEDS: LEVOTHYROXINE SODIUM 25 MCG TABLET PO SCH (07:51)
[2019-08-26 08:00] VITALS: BP 127/58
[2019-08-26] MEDS: AMIODARONE HCL 200 MG TABLET PO SCH (08:22)
[2019-08-26] MEDS: SERTRALINE HCL 50 MG TABLET PO SCH (08:22)
[2019-08-26] MEDS: FINASTERIDE (5 MG) 5 MG TABLET PO SCH (08:22)
[2019-08-26] MEDS: CHOLECALCIFEROL 1,000 UNIT TABLET (VIT D3) PO SCH (08:22)
[2019-08-26] MEDS: FOLIC ACID 1 MG TABLET PO SCH (08:22)
[2019-08-26] MEDS: FUROSEMIDE 40 MG TABLET PO SCH (08:22)
[2019-08-26] MEDS: VIT B CMPLX 3/FA/VIT C/BIOTIN 1 TAB TABLET PO SCH (08:22)
[2019-08-26] MEDS: INSULIN GLARGINE, 100 UNIT/ML CARTRIDGE SQ SCH (08:23)
[2019-08-26] MEDS: GENTLE IRON PO SCH (08:24)
[2019-08-26] MEDS: MUPIROCIN OINT 2% 22 GM TUBE SCH (08:24)
[2019-08-26] MEDS: VANCOMYCIN 0.75 GM in IV D5W 250 ML IV SCH (08:28)
[2019-08-26] MEDS ORDERED: VANC1PLA9 IV (11:36)
[2019-08-26] MEDS: CEFEPIME 2 GM in IV D5W 100 ML IV SCH (11:42)
[2019-08-26 12:00] VITALS: BP 152/55
--- NOTE | 2019-08-26 12:30 | NUR ---
ANGEL/RN: 1146-BLOOD GLUCOSE 37. PRN D50 ADMINISTERED AND ONE BOX OF ORANGE JUICE. 1225: BLOOD GLUCOSE 151, WILL CONTINUE TO MONITOR.
[2019-08-26 16:00] VITALS: BP 126/48
[2019-08-26] MEDS: MONTELUKAST SODIUM (10MG) 10 MG TABLET PO SCH (17:21)
[2019-08-26] MEDS: Fluticasone/Umeclidin/Vilanter (Trelegy Ellipta 100-62.5 INH SCH (17:21)
[2019-08-26] MEDS: DOCUSATE SODIUM 100 MG CAPSULE PO SCH (17:21)
[2019-08-26] MEDS: RIVAROXABAN 15 MG TABLET PO SCH (17:21)
--- NOTE | 2019-08-26 17:30 | NUR ---
ANGEL/RN: BS 137. PT REFUSED INSULIN.
--- NOTE | 2019-08-26 18:59 | NUR ---
ANGEL/RN: LAST DOSE OF VANCOMYCIN INFUSING. POST MEDICATION PT IS READY FOR DISCHARGE. ALL DISCHARGE PAPERWORK PREPARED. RIGHT UPPER ARM PICC LINE INSERTED. PT WILL GO HOME WITH PICC LINE AND [facility] FOR [facility] ADMIN[facility]. ALL BELONGINGS CHECKED. AT BEDSIDE TO TAKE PT HOME. ALL NEEDS ATTENDED TO, SAFETY MEASURES TAKEN. SKIN INTACT. NO DISCHARGE PHOTOS NEEDED. WILL ENDORSE REPORT TO NIGHT RN.
[2019-08-26] MEDS ORDERED: VANCOMYCIN 0.75 GM in IV D5W 250 ML IV SCH (19:00)
--- NOTE | 2019-08-26 20:10 | NUR ---
[employer] NOTE: PT WAS DISCHARGED HOME IN STABLE CONDITION. TOOK PT HOME. RIGHT UPPER ARM PICC LINE INTACT AND PATENT, FLUSHING WELL. DISCHARGE INSTRUCTIONS GIVEN. EXIT CARE PROVIDED.
[2019-09-20] MEDS ORDERED: EVOLOCUMAB 420 MG SQ SCH (09:00)
== END 2019-08-26 20:00 | disposition home health service (06) | DRG 871 ==
LOC: ER 09:12 → ICU 11:03 → TELE1 08-22 18:35 → TELE-TD 08-22 20:21
PROVIDERS: ADMIT Family Medicine; ATTEND Internal Medicine
PROC: 5A09357 Assistance with Respiratory Ventilation, Less than 24 Consecutive Hours, Continuous Positive Airway Pressure (ICD-10-PCS; principal; 2019-08-21)
PROC: 02HV33Z Insertion of Infusion Device into Superior Vena Cava, Percutaneous Approach (ICD-10-PCS; 2019-08-26)
PROC: B548ZZA Ultrasonography of Superior Vena Cava, Guidance (ICD-10-PCS; 2019-08-26)
DX: A41.81 Sepsis due to Enterococcus (principal); I50.23 Acute on chronic systolic (congestive) heart failure; J96.01 Acute respiratory failure with hypoxia; E43 Unspecified severe protein-calorie malnutrition; N17.0 Acute kidney failure with tubular necrosis; J15.9 Unspecified bacterial pneumonia; D68.59 Other primary thrombophilia; J44.0 Chronic obstructive pulmonary disease with (acute) lower respiratory infection; E87.2 Acidosis; I11.0 Hypertensive heart disease with heart failure; Z95.1 Presence of aortocoronary bypass graft; Z87.891 Personal history of nicotine dependence; Z95.0 Presence of cardiac pacemaker; Z87.01 Personal history of pneumonia (recurrent); R65.20 Severe sepsis without septic shock; E88.09 Other disorders of plasma-protein metabolism, not elsewhere classified; Z79.4 Long term (current) use of insulin; I25.5 Ischemic cardiomyopathy; I25.10 Atherosclerotic heart disease of native coronary artery without angina pectoris; E03.9 Hypothyroidism, unspecified; E11.65 Type 2 diabetes mellitus with hyperglycemia; I95.9 Hypotension, unspecified; E66.9 Obesity, unspecified; Z68.27 Body mass index [BMI] 27.0-27.9, adult; Z22.322 Carrier or suspected carrier of Methicillin resistant Staphylococcus aureus; I48.0 Paroxysmal atrial fibrillation
CPT/HCPCS: 36415; 36569; 36600; 71045-TC; 76770-TC; 80048-TC; 80053-TC; 80061-TC; 80076-TC; 80202-TC; 81000-TC; 82550-TC; 82570-TC; 82803-TC; 82962-TC; 83605-TC; 83735-TC; 83880; 83970; 84100-TC; 84155; 84155-TC; 84165; 84300-TC; 84484-TC; 85025-TC; 85730-TC; 87040-TC; 87081-TC; 87186-TC; 93307-TC; 94760-TC; 94799-TC; 97116-TC; 97530-TC; A4216; C1751; G0378; J0692; J1815; J1956; J2543; J3370; J3490; J7030; J7040; J7042; J7050; J7060